=== PATIENT | female | born 1935 | race Caucasian/White ===

== ENCOUNTER 2017-02-22 14:27 | Emergency (ER) | payer MEDICARE, OTHER ==
[2017-02-22 15:06] LABS: BILIRUBIN,URINE NEGATIVE (NEG); GLUCOSE,URINE 500 mg/dL (NEG); NITRITE,URINE NEGATIVE (NEG); PH,URINE 5.5; PROTEIN,URINE 30 mg/dL (NEG-TRACE)
[2017-02-22] MEDS: HYDROcodone/APAP 5/325MG 1 TAB TABLET PO (15:12)
[2017-02-22 15:23] LABS: BACTERIA,URINE MANY /HPF (0-FEW); SQUAMOUS EPITHELIAL CELL,UR MOD /LPF; WBC,URINE 20-40 /HPF (0-4)
[2017-02-22] MEDS: MORPHINE SULFATE 4 MG/ML DISP.SYRIN. IM (17:38)
== END 2017-02-22 18:47 | disposition home or self-care (01) ==
LOC: ER 14:27
DX: S22.060A Wedge compression fracture of T7-T8 vertebra, initial encounter for closed fracture (principal); N39.0 Urinary tract infection, site not specified; E11.9 Type 2 diabetes mellitus without complications; Z95.0 Presence of cardiac pacemaker; Z88.0 Allergy status to penicillin; Z88.6 Allergy status to analgesic agent; W18.39XA Other fall on same level, initial encounter; Y93.89 Activity, other specified; Y92.009 Unspecified place in unspecified non-institutional (private) residence as the place of occurrence of the external cause; Y99.8 Other external cause status
CPT/HCPCS: 51701; 71110; 72128; 81001; 87086; 87186; 96372; 99285-25; J2270

== ENCOUNTER → 2017-09-04 | Day surgery (SDC) | payer MEDICARE, OTHER ==
[~2017-09-04] MED LIST: IV RINGERS,LACTATED 1000ML 1,000 ML IV; LIDOCAINE 1% PF 2 ML VIAL. ID; LIDOCAINE 2% PF Vial for OR 5 ML VIAL.; MIDAZOLAM HCL/PF 2 MG/2 ML VIAL. IV; PROPOFOL 20 ML IV; fentaNYL PF VIAL 100 MCG/2 ML VIAL IV
[2017-09-04] MEDS: SIMETHICONE/SOD BICARB/CITRIC ACID PACKET. PO (15:24)
[2017-09-04] MEDS: BARIUM SULFATE 60% 355 ML SUSP PO (15:24)
[2017-09-04] MEDS: BARIUM SULFATE 340 GM SUSPENSION. PO (15:24)
== END | disposition home or self-care (01) ==
LOC: ENDOS 14:26
DX: K44.9 Diaphragmatic hernia without obstruction or gangrene (principal); K57.30 Diverticulosis of large intestine without perforation or abscess without bleeding; K80.20 Calculus of gallbladder without cholecystitis without obstruction; I25.10 Atherosclerotic heart disease of native coronary artery without angina pectoris; I10 Essential (primary) hypertension; K21.9 Gastro-esophageal reflux disease without esophagitis; E11.9 Type 2 diabetes mellitus without complications; F41.9 Anxiety disorder, unspecified; E44.1 Mild protein-calorie malnutrition; E78.5 Hyperlipidemia, unspecified; Z95.0 Presence of cardiac pacemaker; Z87.891 Personal history of nicotine dependence; Z88.0 Allergy status to penicillin; Z88.8 Allergy status to other drugs, medicaments and biological substances; Z98.890 Other specified postprocedural states; I48.2 Chronic atrial fibrillation; Z82.49 Family history of ischemic heart disease and other diseases of the circulatory system; Z79.01 Long term (current) use of anticoagulants; Z79.4 Long term (current) use of insulin; Z79.899 Other long term (current) drug therapy; H91.93 Unspecified hearing loss, bilateral; Z83.3 Family history of diabetes mellitus
CPT/HCPCS: 74241; J2001; J2704

== ENCOUNTER → 2019-01-18 | Outpatient (CLI) | payer MEDICARE, OTHER ==
[2017-09-03 09:06] VITALS: BP 151/77
[~2019-01-18] MED LIST changes: +ACET1TAB33 PO; +AMIO200T4 PO; +APIX5TAB PO; +ATOR20TA58 PO; +ERGO500027 PO; +HYDR-3164 PO; +INSU100V13 SQ; +INSU8CAR IH; -IV RINGERS,LACTATED 1000ML 1,000 ML IV; -LIDOCAINE 1% PF 2 ML VIAL. ID; -LIDOCAINE 2% PF Vial for OR 5 ML VIAL.; +METF10007 PO; -MIDAZOLAM HCL/PF 2 MG/2 ML VIAL. IV; +NITR100C62 PO; -PROPOFOL 20 ML IV; +SULF1TAB24 PO; +TRAM50TA PO; -fentaNYL PF VIAL 100 MCG/2 ML VIAL IV
--- NOTE | 2019-01-18 17:13 | RAD ---
EXAM: PA and Lateral Views of the Chest DATE: 01/18/2019 12:00 AM INDICATION: Chest wall pain COMPARISON: 09/02/2017 FINDINGS: Stable mild cardiomegaly. Mediastinal and hilar contours are stable. Dense left lung base airspace opacities are seen, likely atelectasis or developing consolidation. Small bilateral pleural effusions, left greater than right. No pneumothorax. Cardiac generator pack obscures a portion of the right chest with leads in stable position. IMPRESSION: Bilateral pleural effusions with left lung base airspace opacities, possibly developing consolidation or atelectasis. Electronically signed by: Derick Allen MD (01/18/2019 5:10 PM) [id number]
== END | disposition home or self-care (01) ==
LOC: RAD 13:25
PROVIDERS: ATTEND Internal Medicine
DX: J90 Pleural effusion, not elsewhere classified (principal); I51.7 Cardiomegaly
CPT/HCPCS: 71046

== ENCOUNTER 2019-02-26 17:40 | Inpatient (IN) | payer MEDICARE, OTHER ==
[~2019-02-26] VITALS: Ht 162.6 cm; Wt 59.9 kg
[~2019-02-26 17:40] MED LIST changes: +ASPI81TA50 PO; +ATOR10TA PO; +DILT180C29 PO; +FLUT9.9S NS; +FURO40TA4 PO; +INSU100V31 SQ; +INSU100V37 SQ; +METO25TA4 PO; +OMEP20TA63 PO; +POTA10TA12 PO; +VENTOLIN HFA18 GM INH
--- NOTE | 2019-02-26 18:08 | PHYS DOC ---
Past Medical History Past Medical History: A-Fib, Arrhythmia, COPD, Diabetes-Type II, Heart Disease Past Surgical History: Pacemaker Alcohol Use: None Drug Use: None Adult General Chief Complaint Chief Complaint: WEAKNESS/GENERALIZED HPI HPI Patient is a 83 year old female who was brought here from home by EMS due to general weakness, trouble breathing. Patient has history of CHF, atrial fibrillation, hypertension. Patient is on Eliquis and diltiazem. Patient was admitted here recently, her EF was 40%, she had bilateral pleural effusion, status post thoracentesis. She would recommend to go to a shelter for rehabilitation however she declined. Patient's son stated that patient had not been eating much, for the last few days she had been in her bed, she was getting weaker, not able to ambulate. No report of fever. Her son said she has been confused, has been hallucinated. All other ROS is negative unless otherwise noted in HPI Review of Systems Review of Systems See above Current Medications Current Medications Current Medications Medications (Trade) Dose Ordered Sig/Dagoberto Start Time Stop Time Status Last Admin Dose Admin Diltiazem HCl (Cardizem Iv Push) 20 mg 1X ONCE 02/26/19 18:15 02/26/19 18:16 DC 02/26/19 18:36 20 MG Diltiazem HCl 125 mg/Sodium Chloride 125 ml @ 5 mls/hr 1X ONCE 02/26/19 20:30 02/27/19 21:29 02/26/19 20:50 5 MLS/HR Ondansetron HCl (Zofran) 4 mg PRN Q8HRS PRN 02/26/19 22:00 02/27/19 21:59 Allergies Allergies Allergies Coded Allergies Type Severity Reaction Last Updated Verified Penicillins Allergy Intermediate SWELLING 09/04/17 Yes ibuprofen Allergy Intermediate "FEELS LIKE I'M DYING" 09/04/17 Yes Physical Exam Physical Exam See above Constitutional: Well developed, well nourished, no acute distress, non-toxic appearance. [] HENT: Normocephalic, atraumatic, bilateral external ears normal, oropharynx moist, no oral exudates, nose normal. [] Eyes: PERRLA, EOMI, conjunctiva normal, no discharge. [] Neck: Normal range of motion, no tenderness, supple, no stridor. [] Cardiovascular: tachycardia, irregular rhythm, no murmur [] Lungs & Thorax: crackles and rales at lung bases, decreased air movement bilaterally. Abdomen: Bowel sounds normal, soft, no tenderness, no masses, no pulsatile masses. [] Skin: Warm, dry, no erythema, no rash. [] Back: No tenderness, no CVA tenderness. [] Extremities: No tenderness, no cyanosis, no clubbing, ROM intact, bilateral leg edema. Neurologic: Alert and oriented only to person, normal motor function, normal sensory function, no focal deficits noted. [] Psychologic: Affect normal, judgement normal, mood normal. [] Current Patient Data Vital Signs Vital Signs Date Time Temp Pulse Resp B/P (MAP) Pulse Ox O2 Delivery O2 Flow Rate FiO2 02/26/19 21:59 123 21 104/57 (73) 94 02/26/19 21:06 Nasal Cannula 2.0 02/26/19 17:40 98.3 98.3 Lab Values Laboratory Tests Test 02/26/19 20:05 02/26/19 21:15 White Blood Count 12.7 x10^3/uL (4.0-11.0) H Red Blood Count 5.04 x10^6/uL (3.50-5.40) Hemoglobin 13.1 g/dL (12.0-15.5) Hematocrit 42.3 % (36.0-47.0) Mean Corpuscular Volume 84 fL (79-100) Mean Corpuscular Hemoglobin 26 pg (25-35) Mean Corpuscular Hemoglobin Concent 31 g/dL (31-37) Red Cell Distribution Width 16.9 % (11.5-14.5) H Platelet Count 516 x10^3/uL (140-400) H Neutrophils (%) (Auto) 77 % (31-73) H Lymphocytes (%) (Auto) 8 % (24-48) L Monocytes (%) (Auto) 14 % (0-9) H Eosinophils (%) (Auto) 0 % (0-3) Basophils (%) (Auto) 1 % (0-3) Neutrophils # (Auto) 9.8 x10^3/uL (1.8-7.7) H Lymphocytes # (Auto) 1.0 x10^3/uL (1.0-4.8) Monocytes # (Auto) 1.8 x10^3/uL (0.0-1.1) H Eosinophils # (Auto) 0.0 x10^3/uL (0.0-0.7) Basophils # (Auto) 0.1 x10^3/uL (0.0-0.2) Prothrombin Time 18.0 SEC (11.7-14.0) H Prothrombin Time INR 1.5 (0.8-1.1) H Activated Partial Thromboplast Time 40 SEC (24-38) H Sodium Level 135 mmol/L (136-145) L Potassium Level 3.6 mmol/L (3.5-5.1) Chloride Level 96 mmol/L (98-107) L Carbon Dioxide Level 23 mmol/L (21-32) Anion Gap 16 (6-14) H Blood Urea Nitrogen 31 mg/dL (7-20) H Creatinine 1.0 mg/dL (0.6-1.0) Estimated GFR (Cockcroft-Gault) 53.2 BUN/Creatinine Ratio 31 (6-20) H Glucose Level 197 mg/dL (70-99) H Lactic Acid Level 1.7 mmol/L (0.4-2.0) Calcium Level 8.4 mg/dL (8.5-10.1) L Magnesium Level 1.9 mg/dL (1.8-2.4) Total Bilirubin 0.8 mg/dL (0.2-1.0) Aspartate Amino Transferase (AST) 13 U/L (15-37) L Alanine Aminotransferase (ALT) 6 U/L (14-59) L Alkaline Phosphatase 148 U/L (46-116) H Troponin I Quantitative < 0.017 ng/mL (0.000-0.055) Total Protein 6.6 g/dL (6.4-8.2) Albumin 2.7 g/dL (3.4-5.0) L Albumin/Globulin Ratio 0.7 (1.0-1.7) L Urine Collection Type U cath Urine Color Vee Urine Clarity Turbid Urine pH 5.5 Urine Specific [place] 1.015 Urine Protein Negative mg/dL (NEG-TRACE) Urine Glucose (UA) Negative mg/dL (NEG) Urine Ketones (Stick) Trace mg/dL (NEG) Urine Blood Large (NEG) Urine Nitrite Negative (NEG) Urine Bilirubin Moderate (NEG) Urine Urobilinogen Dipstick 1.0 mg/dL (0.2 mg/dL) Urine Leukocyte Esterase Large (NEG) Urine RBC 20-40 /HPF (0-2) Urine WBC Tntc /HPF (0-4) Urine Squamous Epithelial Cells None /LPF Urine Bacteria Few /HPF (0-FEW) Urine Hyaline Casts Many /HPF Urine Mucus Marked /LPF Urine Yeast Present /HPF Laboratory Tests 02/26/19 20:05 Laboratory Tests 02/26/19 20:05 EKG EKG EKG WAS READ BY THIS PHYSICIAN AT 1748, RATE OF 144, AFIB WITH RVR. Radiology/Procedures Radiology/Procedures [][facility] [address] [place], [place] [id number] IMAGING REPORT Signed PATIENT: SONIA CASTELLANOOUNT: [id number] : 1935 LOCATION: ER AGE: 83 SEX: F EXAM STATUS: PRE ER ORD. PHYSICIAN: HUNTER CUI DO REASON: soa PROCEDURE: PORTABLE CHEST 1V Chest AP portable at 1815: Reason for examination: Short of breath. Comparison is made to previous study dated 02/12/2019. Pacemaker remains present over the right hemithorax with leads to the right atrium and right ventricle. Heart and mediastinum are unchanged. Lung kapoor show continued presence of infiltrates and pleural fluid at the left lung base but this shows some interval improvement. There appears to be increasing hazy infiltrates in the small pleural effusion at the right lung base. There also appears to be probable interstitial present bilaterally. These findings may be due to congestive heart failure with pulmonary edema and pleural effusions. No acute bony abnormalities are seen. IMPRESSION: Cardiomegaly with bibasal infiltrates and pleural effusions as well as increased interstitial markings. Findings would be consistent with congestive heart failure with some pulmonary edema. Electronically signed by: Teresita Terry MD (02/26/2019 6:37 PM) [facility] DICTATED and SIGNED BY: TERESITA TERRY MD DATE: 02/26/19 2069 Course & Med Decision Making Course & Med Decision Making Pertinent Labs and Imaging studies reviewed. (See chart for details) [] Dragon Disclaimer Dragon Disclaimer This electronic medical record was generated, in whole or in part, using a voice recognition dictation system. Departure Departure Impression: Primary Impression: Afib Additional Impression: UTI (urinary tract infection) Disposition: ADMITTED INPATIENT Admitting Physician: Madi. Kirkland Condition: STABLE Referrals: MEG PALOMO MD (PCP) Problem Qualifiers HUNTER CUI DO Feb 26, 2019 18:08
[2019-02-26] MEDS ORDERED: dilTIAZem IV PUSH 25 MG/5 ML VIAL IVP ONE (18:15)
--- NOTE | 2019-02-26 18:40 | RAD ---
Chest AP portable at 1815: Reason for examination: Short of breath. Comparison is made to previous study dated 02/12/2019. Pacemaker remains present over the right hemithorax with leads to the right atrium and right ventricle. Heart and mediastinum are unchanged. Lung kapoor show continued presence of infiltrates and pleural fluid at the left lung base but this shows some interval improvement. There appears to be increasing hazy infiltrates in the small pleural effusion at the right lung base. There also appears to be probable interstitial present bilaterally. These findings may be due to congestive heart failure with pulmonary edema and pleural effusions. No acute bony abnormalities are seen. IMPRESSION: Cardiomegaly with bibasal infiltrates and pleural effusions as well as increased interstitial markings. Findings would be consistent with congestive heart failure with some pulmonary edema. Electronically signed by: Annetta Guillen MD (02/26/2019 6:37 PM) [facility]
[2019-02-26] MEDS ORDERED: dilTIAZem INJ 125 MG in IV NORMAL SALINE 100ML 100 ML IV ONE (20:30)
[2019-02-26 20:34] LABS: BASO # 0.1 x10^3/uL (0.0-0.2); BASO % 1 % (0-3); EOS % 0 % (0-3); HEMATOCRIT 42.3 % (36.0-47.0); HEMOGLOBIN 13.1 g/dL (12.0-15.5); LYMPH % 8 % (24-48); MEAN CORPUSCULAR HEMOGLOBIN 26 pg (25-35); MEAN CORPUSCULAR HGB CONC 31 g/dL (31-37); MEAN CORPUSCULAR VOLUME 84 fL (79-100); MONO # 1.8 x10^3/uL (0.0-1.1); MONO % 14 % (0-9); NEUT # 9.8 x10^3/uL (1.8-7.7); NEUT % 77 % (31-73); PLATELET COUNT 516 x10^3/uL (140-400); RED BLOOD COUNT 5.04 x10^6/uL (3.50-5.40); RED CELL DISTRIBUTION WIDTH 16.9 % (11.5-14.5); WHITE BLOOD COUNT 12.7 x10^3/uL (4.0-11.0)
[2019-02-26 20:38] LABS: CALCIUM 8.4 mg/dL (8.5-10.1); GFR 53.2; POTASSIUM 3.6 mmol/L (3.5-5.1)
[2019-02-26 20:45] LABS: ALBUMIN 2.7 g/dL (3.4-5.0); ALBUMIN/GLOBULIN RATIO 0.7 (1.0-1.7); MAGNESIUM 1.9 mg/dL (1.8-2.4); TOTAL BILIRUBIN 0.8 mg/dL (0.2-1.0); TOTAL PROTEIN 6.6 g/dL (6.4-8.2)
[2019-02-26 21:26] LABS: BILIRUBIN,URINE MODERATE (NEG); CLARITY,URINE TURBID; COLOR,URINE AMBER; NITRITE,URINE NEGATIVE (NEG); PH,URINE 5.5; PROTEIN,URINE NEGATIVE (NEG-TRACE)
[2019-02-26 21:35] LABS: BACTERIA,URINE FEW /HPF (0-FEW); HYALINE CASTS, URINE MANY /HPF; RBC,URINE 20-40 /HPF (0-2); WBC,URINE TNTC /HPF (0-4); YEAST,URINE PRESENT /HPF
[2019-02-26] MEDS ORDERED: ONDANSETRON PF 4 MG/2 ML VIAL. IV PRN (22:00)
[2019-02-26] MEDS ORDERED: HYDROcodone/APAP 5/325MG 1 TAB TABLET PO ONE (22:30)
[2019-02-27] VITALS (9 sets, daily range): BP systolic 94–138; BP diastolic 55–99
[2019-02-27] MEDS ORDERED: IPRATRPIUM/ALBUTEROL 0.5/2.5MG 3 ML NEBU. ONE (05:55)
[2019-02-27] MEDS: IPRATRPIUM/ALBUTEROL 0.5/2.5MG 3 ML NEBU. NEB SCH ×4 (06:24→20:15)
--- NOTE | 2019-02-27 07:53 | HP ---
ADMIT DATE: HISTORY OF PRESENT ILLNESS: The patient is an 83-year-old female patient, who was brought to the Emergency Room by EMS due to generalized weakness, shortness of breath. She apparently is known to have congestive heart failure, atrial fibrillation and hypertension and currently on Eliquis and diltiazem. She was discharged recently from this hospital. She has had bilateral pleural effusion for which she underwent thoracentesis. It was recommended for her to go to a halfway for rehabilitation; however, she declined. Her son stated that the patient has been eating much for the last few days, has had pain in her bed. She was getting weaker, not able to ambulate. No reports of fever; however, his son said that she has been more confused and hallucinating. She was evaluated in the Emergency Room and her lab work shows mild leukocytosis. Her chemistry showed that she is dehydrated and her urinalysis showed she has too numerous to count wbc's and large amount of leukocyte esterase and few bacteria. Her chest x-ray showed that there is cardiomegaly with bilateral infiltrate and pleural effusion as well as increased interstitial marking, finding would be consistent with congestive heart failure with some pulmonary edema. The patient was started on IV levofloxacin as she is ALLERGIC TO PENICILLIN and was admitted for further evaluation and treatment. She was found to be in atrial fibrillation with rapid ventricular response for which she was started on Cardizem drip and was admitted with atrial fibrillation with rapid ventricular response, urinary tract infection and acute on chronic systolic congestive heart failure. When I questioned her, she did complain of pain in her feet. PAST MEDICAL HISTORY: Significant for chronic atrial fibrillation, bilateral sensorineural deafness, chronic obstructive pulmonary disease, type 2 diabetes, hypertension, insulin requiring, paroxysmal ventricular tachycardia, UTIs in the past as well as anxiety. PAST SURGICAL HISTORY: Significant for permanent pacemaker placement. ALLERGIES: SHE IS ALLERGIC TO PENICILLIN, IBUPROFEN AND TYLENOL. FAMILY HISTORY: Positive for diabetes, history of alcoholism in the past. SOCIAL HISTORY: She is a former smoker, at least 1 pack for 40 years, cut down and stopped recently. She apparently lives with her son. REVIEW OF SYSTEMS: The patient denied any blurring of vision, cataract, glaucoma or macular degeneration. Denied any earache, tinnitus. She does have sensorineural deafness. Denied any nosebleeds, stuffy nose or postnasal drip. Denied any sore throat, sore tongue, toothache, hoarseness of voice or difficulty swallowing. Denied any nausea, vomiting, diarrhea or constipation. Denied any hematemesis, melena or hematochezia. Denied any dysuria, frequency or hematuria. Her complaint is mostly pain in her feet. PHYSICAL EXAMINATION: GENERAL: On arrival to the Emergency Room, her heart rate was up to 148 on arrival, blood pressure was 122/78, temperature 98.3, respiratory rate was 24, and oxygen saturation was 94% on 3 liters of oxygen by nasal cannula. HEAD, EYES, EARS, NOSE AND THROAT: Showed normocephalic, atraumatic. NECK: Supple. HEART: Showed normal first and second heart sounds. No gallop or murmur. CHEST: Shows central trachea, equally reduced expansion, reduced air entry, vesicular sounds with crepitation both sides posteriorly. I could not really appreciate any rhonchi. ABDOMEN: Slightly distended, soft, nontender. NEUROLOGIC: She is very hard of hearing, but otherwise all cranial nerves intact. EXTREMITIES: She moves extremities without difficulty. LABORATORY DATA: On arrival showed a white cell count of 12,700, hemoglobin 13, hematocrit 42, MCV 84 and platelet count of 516,000. Her chemistry showed a serum sodium 135, potassium 3.6, chloride 96, bicarbonate 23, anion gap of 16, BUN 31, creatinine 1, estimated GFR was 53 mL per minute. Her glucose was 197. Lactic acid was 1.7, calcium was 8.4, magnesium was 1.9. Total bilirubin, AST, ALT were normal. Alkaline phosphatase was slightly elevated. Total protein 6.6, albumin 2.7. Her prothrombin time was 18, INR 1.5, aPTT was 40. Urinalysis showed the urine was lizandro, turbid with a pH of 5.5, specific gravity of 1.015. The urine was negative for protein, glucose, trace of ketones, large amount of blood, negative for nitrite, moderate amount of bilirubin with large amount of leukocyte esterase, 20-40 rbc's, too numerous to count wbc's, very few bacteria. ASSESSMENT AND PLAN: The patient was admitted with atrial fibrillation with rapid ventricular response, started on Cardizem drip. She was also started on IV Levaquin for her presumed UTI. I will resume all her medication for now and we will consult the knitter operator to assist with her management. RISHABH MODI MD DR: JB/kallie JOB#: [id number] / [id number]
[2019-02-27] MEDS: ALBUTEROL SULFATE 2.5 MG/3 ML NEBU. NEB SCH ×3 (08:00→23:50)
[2019-02-27] MEDS: FLUTICASONE 50MCG/NASAL SPRAY 16GM BOTTLE. NS SCH (09:13)
[2019-02-27] MEDS: FUROSEMIDE 40 MG TABLET. PO SCH (09:14)
[2019-02-27] MEDS: APIXABAN 5 MG TABLET. PO SCH ×2 (09:14→20:47)
[2019-02-27] MEDS: POTASSIUM CHLORIDE 20 MEQ TABLET.ER. PO SCH (09:14)
[2019-02-27] MEDS: ASPIRIN ENTERIC COATED 81 MG TABLET.DR. PO SCH (09:14)
[2019-02-27] MEDS: PANTOPRAZOLE 40 MG TABLET.DR. PO SCH (09:15)
[2019-02-27] MEDS: traMADol 50 MG TABLET PO PRN ×2 (09:16→20:44)
[2019-02-27] MEDS: METOPROLOL TART IMMED RELEASE 25 MG TABLET. PO SCH ×2 (09:16→20:48)
[2019-02-27] MEDS: INSULIN LISPRO 300 UNITS/3 ML VIAL. SQ SCH ×3 (09:21→16:30)
--- NOTE | 2019-02-27 12:14 | PN ---
DATE: 02/27/2019 SUBJECTIVE: The patient is resting slightly propped up in bed, no apparent distress. She is awake, alert, very hard of hearing. Her main complaint is pain in her legs. Denied any chest pain or shortness of breath. She was admitted with generalized weakness, atrial fibrillation, rapid ventricular response, and urinary tract infection. She was started on a Cardizem drip. PHYSICAL EXAMINATION: GENERAL: When I saw her today, she was resting slightly propped up in bed, in no apparent distress, pale. No jaundice, cyanosis, or thyromegaly. No jugular venous distention. No limb edema. VITAL SIGNS: Her heart rate was 97, blood pressure was 115/66, temperature 97.3, respiratory rate was 24, and oxygen saturation was 94% on 2 liters of oxygen. HEAD, EYES, EARS, NOSE, AND THROAT: Normocephalic, atraumatic. NECK: Supple. HEART: Showed normal first and second sounds. No gallop or murmur. CHEST: Shows central trachea, equal bilateral expansion, air entry ____ crepitation both sides posteriorly. I could not appreciate any rhonchi. ABDOMEN: Distended, soft, nontender. NEUROLOGIC: She is very hard of hearing. Otherwise all cranial nerves are intact. She moves extremities without difficulty. Her intake and output are incompletely recorded. LABORATORY DATA: Her lab work this morning is still pending. PLAN: My plan is to continue with IV Levaquin. Continue with the Cardizem drip. I reconciled all her medication. We will probably change her Lasix to be given IV, and I have consulted the cardiology team to assist with her management. RISHABH MODI MD DR: JB/kallie JOB#: [id number] / [id number]
--- NOTE | 2019-02-27 12:22 | PDOC2 ---
CONSULT Date of Consult Date of Consult DATE: 02/27/19 TIME: 12:22 Reason for Consult Reason for Consult: Atrial fibrillation Referring Physician Referring Physician: Dr. Del Rio Identification/Chief Complaint Chief Complaint Generalized weakness Source Source: Chart review, Patient History of Present Illness Reason for Visit: 83-year-old female with history of permanent atrial fibrillation, sick sinus syndrome s/p permanent pacemaker implantation and COPD was brought by EMS for generalized weakness and shortness of breath. She was diagnosed with UTI, atrial fibrillation with RVR and congestive heart failure and admitted for further management. She was initially started on Cardizem drip that was discontinued after her heart rate was very well controlled. She complained of pain in both lower extremities and 'rib pain' but denied any orthopnea/PND or syncope. Past Medical History Cardiovascular: AFIB, HTN, Hyperlipidemia, Pulmonary hypertension, Other Pulmonary: COPD CENTRAL NERVOUS SYSTEM: Seizure, Other GI: Diverticulosis, GERD, GI bleed, Other Hepatobiliary: Cholelithiasis Psych: Anxiety Musculoskeletal: Osteoarthritis, Other Infectious disease: Other Renal/: UTI, Other Endocrine: Diabetes, Osteoporosis Past Surgical History Past Surgical History: Pacemaker Family History Family History: Family History Unknown Social History ALCOHOL: none Drugs: None Lives: with Family Current Problem List Problem List Problems Medical Problems: (1) Afib Status: Acute (2) UTI (urinary tract infection) Status: Acute Current Medications Current Medications Current Medications Diltiazem HCl (Cardizem Iv Push) 20 mg 1X ONCE IVP Last administered on 02/26/19at 18:36; Start 02/26/19 at 18:15; Stop 02/26/19 at 18:16; Status DC Diltiazem HCl 125 mg/Sodium Chloride 125 ml @ 5 mls/hr 1X ONCE IV Last administered on 02/26/19at 20:50; Start 02/26/19 at 20:30; Stop 02/27/19 at 21:29 Levofloxacin/ Dextrose 150 ml @ 100 mls/hr 1X ONCE IV Last administered on 02/26/19at 23:11; Start 02/26/19 at 22:30; Stop 02/26/19 at 23:59; Status DC Ondansetron HCl (Zofran) 4 mg PRN Q8HRS PRN IV NAUSEA/VOMITING 1ST CHOICE; Start 02/26/19 at 22:00; Stop 02/27/19 at 21:59 Albuterol/ Ipratropium (Duoneb) 3 ml RTQID NEB Last administered on 02/27/19at 06:24; Start 02/27/19 at 08:00; Stop 02/28/19 at 07:59 Acetaminophen/ Hydrocodone Bitart (Lortab 5/325) 1 tab 1X ONCE PO Last administered on 02/26/19at 23:10; Start 02/26/19 at 22:30; Stop 02/26/19 at 22:31; Status DC Albuterol/ Ipratropium (Duoneb) 3 ml STK-MED ONCE .ROUTE ; Start 02/27/19 at 05:55; Stop 02/27/19 at 05:55; Status DC Apixaban (Eliquis) 5 mg BID PO Last administered on 02/27/19at 09:14; Start 02/27/19 at 09:00 Aspirin (Ecotrin) 81 mg DAILY PO Last administered on 02/27/19at 09:14; Start 02/27/19 at 09:00 Atorvastatin Calcium (Lipitor) 10 mg HS PO ; Start 02/27/19 at 21:00 Diltiazem HCl (Cardizem 24hr Cd) 180 mg DAILY PO Last administered on 02/27/19at 09:14; Start 02/27/19 at 09:00 Ergocalciferol (Vitamin D2) 50,000 unit WEEKLY PO ; Start 03/02/19 at 09:00 Furosemide (Lasix) 40 mg DAILY PO Last administered on 02/27/19at 09:14; Start 02/27/19 at 09:00 Metoprolol Tartrate (Lopressor) 25 mg BID PO Last administered on 02/27/19at 09:16; Start 02/27/19 at 09:00 Potassium Chloride (Klor-Con) 20 meq DAILY PO Last administered on 02/27/19at 09:14; Start 02/27/19 at 09:00 Tramadol HCl (Ultram) 50 mg PRN Q6HRS PRN PO PAIN Last administered on 02/27/19at 09:16; Start 02/27/19 at 07:30 Albuterol Sulfate (Ventolin Neb Soln) 2.5 mg Q4HRS NEB ; Start 02/27/19 at 08:00 Fluticasone Propionate (Flonase) 2 spray DAILY NS Last administered on 02/27/19at 09:13; Start 02/27/19 at 09:00 Insulin Human Lispro (HumaLOG) 10 units TIDAC SQ Last administered on 02/27/19at 09:21; Start 02/27/19 at 07:30 Insulin Glargine (Lantus Syringe) 10 unit QHS SQ ; Start 02/27/19 at 21:00 Pantoprazole Sodium (Protonix) 40 mg DAILYAC PO Last administered on 02/27/19at 09:15; Start 02/27/19 at 07:30 Active Scripts Active Klor-Con 10 (Potassium Chloride) 10 Meq Tablet.er 2 Tab PO DAILY 30 Days Furosemide 40 Mg Tablet 40 Mg PO DAILY 30 Days Metoprolol Tartrate 25 Mg Tablet 25 Mg PO BID 30 Days Diltiazem 24HR Cd (Diltiazem Hcl) 180 Mg Cap.er.24h 180 Mg PO DAILY 30 Days Reported Prilosec Otc (Omeprazole Magnesium) 20 Mg Tablet.dr 20 Mg PO DAILY Ventolin Hfa Inhaler (Albuterol Sulfate) 18 Gm Hfa.aer.ad 2 Puff INH Q4HRS Flonase Allergy Relief (Fluticasone Propionate) 9.9 Ml Orange.susp 2 Sprays NS DAILY Aspir-Low (Aspirin) 81 Mg Tablet.dr 1 Tab PO DAILY Tramadol Hcl 50 Mg Tablet 50 Mg PO Q6HRS PRN Novolog (Insulin Aspart) 100 Unit/1 Ml Vial 10 Unit SQ TIDAC Tresiba (Insulin Degludec) 100 Unit/1 Ml Vial 10 Unit SQ HS Lipitor (Atorvastatin Calcium) 10 Mg Tablet 10 Mg PO HS Vitamin D2 (Ergocalciferol (Vitamin D2)) 50,000 Unit Capsule 50,000 Unit PO WEEKLY Eliquis (Apixaban) 5 Mg Tablet 5 Mg PO BID Allergies Allergies: Coded Allergies: Penicillins (Verified Allergy, Intermediate, SWELLING, 09/04/17) ibuprofen (Verified Allergy, Intermediate, "FEELS LIKE I'M DYING", 09/04/17 ) ROS General: YES: Fatigue, Malaise PSYCHOLOGICAL ROS: No: Hallucinations Eyes: No Loss of vision HEENT: No: Epistaxis Respiratory: YES: Shortness of breath; No: Hemoptysis Cardiovascular: yes Chest Pain Gastrointestinal: No Vomiting Genitourinary: No Hematuria Neurological: No Seizures Skin: No Rash Physical Exam General: Alert HEENT: Atraumatic Lungs: Other (bilateral scattered crepitations) Heart: Other (heart rate irregular) Abdomen: Soft Extremities: No edema Psych/Mental Status: Mood NL Vitals VITALS Vital Signs Date Time Temp Pulse Resp B/P (MAP) Pulse Ox O2 Delivery O2 Flow Rate FiO2 02/27/19 10:31 98.0 104 24 108/55 (72) 96 Nasal Cannula 2.0 98.0 Labs Labs Laboratory Tests Test 02/26/19 20:05 02/26/19 21:15 02/27/19 07:26 02/27/19 11:39 White Blood Count 12.7 x10^3/uL (4.0-11.0) Red Blood Count 5.04 x10^6/uL (3.50-5.40) Hemoglobin 13.1 g/dL (12.0-15.5) Hematocrit 42.3 % (36.0-47.0) Mean Corpuscular Volume 84 fL (79-100) Mean Corpuscular Hemoglobin 26 pg (25-35) Mean Corpuscular Hemoglobin Concent 31 g/dL (31-37) Red Cell Distribution Width 16.9 % (11.5-14.5) Platelet Count 516 x10^3/uL (140-400) Neutrophils (%) (Auto) 77 % (31-73) Lymphocytes (%) (Auto) 8 % (24-48) Monocytes (%) (Auto) 14 % (0-9) Eosinophils (%) (Auto) 0 % (0-3) Basophils (%) (Auto) 1 % (0-3) Neutrophils # (Auto) 9.8 x10^3/uL (1.8-7.7) Lymphocytes # (Auto) 1.0 x10^3/uL (1.0-4.8) Monocytes # (Auto) 1.8 x10^3/uL (0.0-1.1) Eosinophils # (Auto) 0.0 x10^3/uL (0.0-0.7) Basophils # (Auto) 0.1 x10^3/uL (0.0-0.2) Prothrombin Time 18.0 SEC (11.7-14.0) Prothromb Time International Ratio 1.5 (0.8-1.1) Activated Partial Thromboplast Time 40 SEC (24-38) Sodium Level 135 mmol/L (136-145) Potassium Level 3.6 mmol/L (3.5-5.1) Chloride Level 96 mmol/L (98-107) Carbon Dioxide Level 23 mmol/L (21-32) Anion Gap 16 (6-14) Blood Urea Nitrogen 31 mg/dL (7-20) Creatinine 1.0 mg/dL (0.6-1.0) Estimated GFR (Cockcroft-Gault) 53.2 BUN/Creatinine Ratio 31 (6-20) Glucose Level 197 mg/dL (70-99) Lactic Acid Level 1.7 mmol/L (0.4-2.0) Calcium Level 8.4 mg/dL (8.5-10.1) Magnesium Level 1.9 mg/dL (1.8-2.4) Total Bilirubin 0.8 mg/dL (0.2-1.0) Aspartate Amino Transf (AST/SGOT) 13 U/L (15-37) Alanine Aminotransferase (ALT/SGPT) 6 U/L (14-59) Alkaline Phosphatase 148 U/L (46-116) Troponin I Quantitative < 0.017 ng/mL (0.000-0.055) Total Protein 6.6 g/dL (6.4-8.2) Albumin 2.7 g/dL (3.4-5.0) Albumin/Globulin Ratio 0.7 (1.0-1.7) Urine Collection Type U cath Urine Color Vee Urine Clarity Turbid Urine pH 5.5 Urine Specific [place] 1.015 Urine Protein Negative mg/dL (NEG-TRACE) Urine Glucose (UA) Negative mg/dL (NEG) Urine Ketones (Stick) Trace mg/dL (NEG) Urine Blood Large (NEG) Urine Nitrite Negative (NEG) Urine Bilirubin Moderate (NEG) Urine Urobilinogen Dipstick 1.0 mg/dL (0.2 mg/dL) Urine Leukocyte Esterase Large (NEG) Urine RBC 20-40 /HPF (0-2) Urine WBC Tntc /HPF (0-4) Urine Squamous Epithelial Cells None /LPF Urine Bacteria Few /HPF (0-FEW) Urine Hyaline Casts Many /HPF Urine Mucus Marked /LPF Urine Yeast Present /HPF Glucose (Fingerstick) 202 mg/dL (70-99) 162 mg/dL (70-99) Laboratory Tests Test 02/26/19 20:05 02/26/19 21:15 02/27/19 07:26 02/27/19 11:39 White Blood Count 12.7 x10^3/uL (4.0-11.0) Red Blood Count 5.04 x10^6/uL (3.50-5.40) Hemoglobin 13.1 g/dL (12.0-15.5) Hematocrit 42.3 % (36.0-47.0) Mean Corpuscular Volume 84 fL (79-100) Mean Corpuscular Hemoglobin 26 pg (25-35) Mean Corpuscular Hemoglobin Concent 31 g/dL (31-37) Red Cell Distribution Width 16.9 % (11.5-14.5) Platelet Count 516 x10^3/uL (140-400) Neutrophils (%) (Auto) 77 % (31-73) Lymphocytes (%) (Auto) 8 % (24-48) Monocytes (%) (Auto) 14 % (0-9) Eosinophils (%) (Auto) 0 % (0-3) Basophils (%) (Auto) 1 % (0-3) Neutrophils # (Auto) 9.8 x10^3/uL (1.8-7.7) Lymphocytes # (Auto) 1.0 x10^3/uL (1.0-4.8) Monocytes # (Auto) 1.8 x10^3/uL (0.0-1.1) Eosinophils # (Auto) 0.0 x10^3/uL (0.0-0.7) Basophils # (Auto) 0.1 x10^3/uL (0.0-0.2) Prothrombin Time 18.0 SEC (11.7-14.0) Prothromb Time International Ratio 1.5 (0.8-1.1) Activated Partial Thromboplast Time 40 SEC (24-38) Sodium Level 135 mmol/L (136-145) Potassium Level 3.6 mmol/L (3.5-5.1) Chloride Level 96 mmol/L (98-107) Carbon Dioxide Level 23 mmol/L (21-32) Anion Gap 16 (6-14) Blood Urea Nitrogen 31 mg/dL (7-20) Creatinine 1.0 mg/dL (0.6-1.0) Estimated GFR (Cockcroft-Gault) 53.2 BUN/Creatinine Ratio 31 (6-20) Glucose Level 197 mg/dL (70-99) Lactic Acid Level 1.7 mmol/L (0.4-2.0) Calcium Level 8.4 mg/dL (8.5-10.1) Magnesium Level 1.9 mg/dL (1.8-2.4) Total Bilirubin 0.8 mg/dL (0.2-1.0) Aspartate Amino Transf (AST/SGOT) 13 U/L (15-37) Alanine Aminotransferase (ALT/SGPT) 6 U/L (14-59) Alkaline Phosphatase 148 U/L (46-116) Troponin I Quantitative < 0.017 ng/mL (0.000-0.055) Total Protein 6.6 g/dL (6.4-8.2) Albumin 2.7 g/dL (3.4-5.0) Albumin/Globulin Ratio 0.7 (1.0-1.7) Urine Collection Type U cath Urine Color Vee Urine Clarity Turbid Urine pH 5.5 Urine Specific [place] 1.015 Urine Protein Negative mg/dL (NEG-TRACE) Urine Glucose (UA) Negative mg/dL (NEG) Urine Ketones (Stick) Trace mg/dL (NEG) Urine Blood Large (NEG) Urine Nitrite Negative (NEG) Urine Bilirubin Moderate (NEG) Urine Urobilinogen Dipstick 1.0 mg/dL (0.2 mg/dL) Urine Leukocyte Esterase Large (NEG) Urine RBC 20-40 /HPF (0-2) Urine WBC Tntc /HPF (0-4) Urine Squamous Epithelial Cells None /LPF Urine Bacteria Few /HPF (0-FEW) Urine Hyaline Casts Many /HPF Urine Mucus Marked /LPF Urine Yeast Present /HPF Glucose (Fingerstick) 202 mg/dL (70-99) 162 mg/dL (70-99) Assessment/Plan Assessment/Plan 1. Atrial fibrillation with rapid ventricular response, probably precipitated by UTI. Heart rate much better controlled since admission. Continue oral Cardizem. If heart rate increases, we will consider digoxin. Continue eliqui for stroke prophylaxis. 2. Mild acute on chronic systolic heart failure. Probably precipitated by RVR. Continue diuretics. Recent 2-D echo showed EF 40-45% with [id number] pericardial effusion (12/19). 3. UTI: Continue antibiotics per IM 4. SSS s/p PPM clinically stable 5. Diabetes mellitus type 2: Treat per IM 6. COPD: Continue current medical regimen Thank you for your consultation PREM OSBORNE MD Feb 27, 2019 12:22
[2019-02-27] MEDS: ATORVASTATIN CALCIUM 10 MG TABLET. PO SCH (20:47)
[2019-02-27] MEDS: INSULIN GLARGINE SYRINGE. SQ SCH (20:48)
[2019-02-28 03:12] VITALS: BP 97/63
[2019-02-28] MEDS: ALBUTEROL SULFATE 2.5 MG/3 ML NEBU. NEB SCH ×4 (04:45→19:58)
[2019-02-28 06:34] VITALS: BP 112/64
[2019-02-28] MEDS: IPRATRPIUM/ALBUTEROL 0.5/2.5MG 3 ML NEBU. NEB SCH (07:41)
[2019-02-28 08:58] LABS: CALCIUM 8.2 mg/dL (8.5-10.1); GFR 53.2; POTASSIUM 3.6 mmol/L (3.5-5.1)
[2019-02-28] MEDS: FLUTICASONE 50MCG/NASAL SPRAY 16GM BOTTLE. NS SCH (09:41)
[2019-02-28] MEDS: ASPIRIN ENTERIC COATED 81 MG TABLET.DR. PO SCH (09:42)
[2019-02-28] MEDS: PANTOPRAZOLE 40 MG TABLET.DR. PO SCH (09:42)
[2019-02-28] MEDS: APIXABAN 5 MG TABLET. PO SCH ×2 (09:43→21:09)
[2019-02-28] MEDS: METOPROLOL TART IMMED RELEASE 25 MG TABLET. PO SCH ×2 (09:43→21:09)
[2019-02-28] MEDS: FUROSEMIDE 40 MG TABLET. PO SCH (09:43)
[2019-02-28] MEDS: POTASSIUM CHLORIDE 20 MEQ TABLET.ER. PO SCH (09:52)
[2019-02-28] MEDS: INSULIN LISPRO 300 UNITS/3 ML VIAL. SQ SCH ×3 (09:56→16:30)
[2019-02-28 10:02] VITALS: BP 107/59
--- NOTE | 2019-02-28 11:06 | PN ---
DATE: SUBJECTIVE: The patient is resting, slightly propped up in bed, clearly in no apparent respiratory distress, awake, alert, but very hard of hearing. Denied any chest pain or shortness of breath, has had no more pain in her legs. Her heart rate seems to be somewhat better controlled on oral Cardizem. PHYSICAL EXAMINATION: GENERAL: When I examined her, she looked pale, but no jaundice, cyanosis or thyromegaly. No jugular venous distention. No lower limb edema. VITAL SIGNS: Her heart rate was 95, blood pressure was 112/64, temperature 97.5, respiratory rate was 12 and oxygen saturation was 97% on 2 liters of oxygen. HEAD, EYES, EARS, NOSE AND THROAT: Showed normocephalic, atraumatic. NECK: Supple. HEART: Normal first and second sounds. No gallop or murmur. CHEST: Clear to auscultation. No crepitation or rhonchi. ABDOMEN: Slightly distended, soft, nontender. NEUROLOGIC: She is very hard of hearing. Otherwise all other cranial nerves are intact. She moves her extremities without difficulty, although apparently has been very weak and hesitant to move according to nursing staff. Her intake over the last 24 hours was incompletely recorded. LABORATORY DATA: Her lab works today is still pending at the time of this dictation. As of yesterday, her white cell count was 12,700, hemoglobin 13, hematocrit 42, MCV 84, platelet count 516,000. Her chemistry showed that her serum sodium 135, potassium 3.6, chloride 96, bicarbonate 23, anion gap of 16, BUN 31, creatinine 1, estimated GFR was 53 mL per minute. Her glucose was 97. Lactic acid is only 1.7. Her blood cultures are so far negative and urine cultures are still pending at the time of this dictation. ASSESSMENT: 1. Atrial fibrillation with rapid ventricular response, better controlled today on oral Cardizem. 2. Acute on chronic diastolic congestive heart failure. The patient seems to be less short of breath today. 3. Sick sinus syndrome, status post permanent pacemaker. 4. Type 2 diabetes mellitus seems to be reasonably controlled. 5. Chronic obstructive pulmonary disease. 6. Urinary tract infection. PLAN: Plan is to continue with all her medication. I would continue with Levaquin 500 mg once a day. Continue with physical and occupational therapy. Await the result of the urine culture and sensitivity. RISHABH MODI MD DR: JB/kallie JOB#: [id number] / [id number]
--- NOTE | 2019-02-28 11:56 | PDOC ---
PROGRESS NOTES Subjective Subjective Feeling better with improvement in dyspnea Objective Objective Vital Signs Date Time Temp Pulse Resp B/P (MAP) Pulse Ox O2 Delivery O2 Flow Rate FiO2 02/28/19 10:02 97.5 100 12 107/59 (75) 96 Nasal Cannula 2.0 97.5 Intake and Output 02/28/19 06:59 Intake Total 1220 ml Balance 1220 ml Intake Oral 1220 ml # Voids 5 Physical Exam Abdomen: Soft Heart: Other (heart rate irregular) Extremities: No edema General: Alert HEENT: Atraumatic Lungs: Other (bilateral scattered crepitations) MUSCULOSKELETAL: Osteoarthritic changes both hands Psych/Mental Status: Mood NL Assessment Assessment 1. Atrial fibrillation with rapid ventricular response, probably precipitated by UTI. Heart rate much better controlled since admission. Continue oral Cardizem. Continue eliqui for stroke prophylaxis. 2. Mild acute on chronic systolic heart failure. Probably precipitated by RVR. Improving with diuresis. Recent 2-D echo showed EF 40-45% with [id number]-sthwxexb pericardial effusion (02/11). 3. UTI: Continue antibiotics per IM 4. SSS s/p PPM clinically stable 5. Diabetes mellitus type 2: Treat per IM 6. COPD: Continue current medical regimen Plan Plan of Care Problems Medical Problems: (1) Afib Status: Acute (2) UTI (urinary tract infection) Status: Acute Comment Review of Relevant I have reviewed the following items hi (where applicable) has been applied. Labs Laboratory Tests Test 02/27/19 14:55 02/27/19 16:23 02/27/19 20:46 02/28/19 07:08 [id number] Natriuretic Peptide 5497 pg/mL (0-449) Glucose (Fingerstick) 143 mg/dL (70-99) 217 mg/dL (70-99) 161 mg/dL (70-99) Test 02/28/19 08:25 02/28/19 11:36 Sodium Level 137 mmol/L (136-145) Potassium Level 3.6 mmol/L (3.5-5.1) Chloride Level 99 mmol/L (98-107) Carbon Dioxide Level 30 mmol/L (21-32) Anion Gap 8 (6-14) Blood Urea Nitrogen 24 mg/dL (7-20) Creatinine 1.0 mg/dL (0.6-1.0) Estimated GFR (Cockcroft-Gault) 53.2 Glucose Level 163 mg/dL (70-99) Calcium Level 8.2 mg/dL (8.5-10.1) Glucose (Fingerstick) 145 mg/dL (70-99) Microbiology 02/26/19 Blood Culture - Preliminary, Resulted NO GROWTH AFTER 1 DAY Medications Current Medications Atorvastatin Calcium (Lipitor) 10 mg HS PO Last administered on 02/27/19at 20:47; Start 02/27/19 at 21:00 Ergocalciferol (Vitamin D2) 50,000 unit WEEKLY PO ; Start 03/02/19 at 09:00 Info (Anti-Coagulation Monitoring By Pharmacy) 1 each PRN DAILY PRN MC SEE COMMENTS; Start 02/28/19 at 08:15 Insulin Glargine (Lantus Syringe) 10 unit QHS SQ Last administered on 02/27/19at 20:48; Start 02/27/19 at 21:00 Levofloxacin (Levaquin) 500 mg DAILY06 PO ; Start 03/01/19 at 06:00 Vitals/I & O Vital Sign - Last 24 Hours 02/27/19 02/27/19 02/27/19 02/27/19 12:39 14:18 16:20 18:26 Temp 98.0 98.2 98.0 98.2 Pulse 83 105 Resp 24 24 B/P (MAP) 94/55 (68) 104/56 (72) Pulse Ox 95 92 95 92 O2 Delivery Nasal Cannula Nasal Cannula Nasal Cannula Nasal Cannula O2 Flow Rate 2.0 2.0 2.0 2.0 02/27/19 02/27/19 02/27/19 02/27/19 19:47 20:16 20:44 20:48 Pulse 105 B/P (MAP) 104/56 Pulse Ox 95 O2 Delivery Nasal Cannula Nasal Cannula Nasal Cannula O2 Flow Rate 3.0 2.0 02/27/19 02/27/19 02/27/19 02/28/19 21:44 22:55 23:50 03:12 Temp 98.4 98.1 98.4 98.1 Pulse 90 93 Resp 20 20 20 B/P (MAP) 138/99 (112) 97/63 (74) Pulse Ox 92 96 97 O2 Delivery Nasal Cannula Nasal Cannula Nasal Cannula Nasal Cannula O2 Flow Rate 2.0 2.0 2.0 2.0 02/28/19 02/28/19 02/28/19 02/28/19 04:45 06:34 07:42 09:42 Temp 97.5 97.5 Pulse 95 104 Resp 12 B/P (MAP) 112/64 (80) 112/64 Pulse Ox 97 97 96 O2 Delivery Nasal Cannula Nasal Cannula Nasal Cannula O2 Flow Rate 2.0 2.0 2.0 02/28/19 02/28/19 09:43 10:02 Temp 97.5 97.5 Pulse 103 100 Resp 12 B/P (MAP) 107/59 (75) Pulse Ox 96 O2 Delivery Nasal Cannula O2 Flow Rate 2.0 Intake and Output 02/27/19 02/27/19 02/28/19 14:59 22:59 06:59 Intake Total 480 ml 740 ml 0 ml Balance 480 ml 740 ml 0 ml PREM OSBORNE MD Feb 28, 2019 11:56
[2019-02-28 14:19] VITALS: BP 107/66
[2019-02-28 19:30] VITALS: BP 98/56
[2019-02-28] MEDS: traMADol 50 MG TABLET PO PRN (21:09)
[2019-02-28] MEDS: traZODone 50 MG TABLET. PO SCH (21:09)
[2019-02-28] MEDS: ATORVASTATIN CALCIUM 10 MG TABLET. PO SCH (21:09)
[2019-02-28] MEDS: INSULIN GLARGINE SYRINGE. SQ SCH (21:10)
[2019-02-28 23:05] VITALS: BP 97/58
[2019-03-01] MEDS: ALBUTEROL SULFATE 2.5 MG/3 ML NEBU. NEB SCH ×7 (00:02→23:04)
[2019-03-01 03:30] VITALS: BP 92/56
[2019-03-01 05:45] LABS: HEMOGLOBIN 12.8 g/dL (12.0-15.5); RED BLOOD COUNT 4.84 x10^6/uL (3.50-5.40); RED CELL DISTRIBUTION WIDTH 16.9 % (11.5-14.5)
[2019-03-01 06:05] LABS: ALBUMIN 2.5 g/dL (3.4-5.0); ALBUMIN/GLOBULIN RATIO 0.6 (1.0-1.7); ALK PHOS 132 U/L (46-116); ANION GAP 9 (6-14); AST (SGOT) 14 U/L (15-37); BLOOD UREA NITROGEN 23 mg/dL (7-20); BUN/CREATININE RATIO 23 (6-20); CALCIUM 8.4 mg/dL (8.5-10.1); CARBON DIOXIDE 29 mmol/L (21-32); CHLORIDE 100 mmol/L (98-107); GFR 53.2; GLUCOSE 52 mg/dL (70-99); POTASSIUM 3.8 mmol/L (3.5-5.1); SODIUM 138 mmol/L (136-145); TOTAL BILIRUBIN 0.6 mg/dL (0.2-1.0); TOTAL PROTEIN 6.4 g/dL (6.4-8.2)
[2019-03-01 06:09] LABS: ALT (SGPT) < 6 U/L (14-59)
[2019-03-01 07:00] VITALS: BP 99/63
[2019-03-01] MEDS: INSULIN LISPRO 300 UNITS/3 ML VIAL. SQ SCH ×3 (07:30→16:30)
--- NOTE | 2019-03-01 07:35 | EKG ---
[facility] [address] [place] [address] Test Date: 2019-02-26 Test Time: 17:46:06 Pat Name: SONIA CASTELLANO Department: Room: Gender: F [employer]: : 1935 Requested By: HUNTER CUI Order Number: [id number] Reading MD: Measurements Intervals [place] Rate: 144 P: MS: QRS: 0 QRSD: 64 T: -154 QT: 298 QTc: 466 Interpretive Statements No previous ECG available for comparison
--- NOTE | 2019-03-01 07:35 | PN ---
DATE: 03/01/2019 SUBJECTIVE: The patient is resting, slightly propped up, sleeping comfortably, in no apparent distress. Nursing staff stated that she had an uneventful night. Apparently, she was noted yesterday to have difficulty swallowing and the nursing staff recommended a video swallowing evaluation. She was switched to full liquid diet yesterday. PHYSICAL EXAMINATION: GENERAL: On examining her this morning, she looked well and was clearly in no apparent respiratory distress, pale, but no jaundice, cyanosis or thyromegaly. No jugular venous distention. No limb edema. VITAL SIGNS: Her heart rate was 81, blood pressure was 92/56, temperature 98, respiratory rate was 22 and oxygen saturation was 95% on 3 liters of oxygen. HEAD, EYES, EARS, NOSE AND THROAT: Normocephalic, atraumatic. NECK: Supple. CARDIAC: Normal first and second heart sounds. No gallop or murmur. CHEST: Clear to auscultation. No crepitation or rhonchi. ABDOMEN: Slightly distended, soft, nontender. NEUROLOGIC: She was sleepy, but arousable. All cranial nerves intact. She moves extremities without difficulty. Her intake was 1200, no output was recorded. LABORATORY DATA: As of this morning, her serum sodium was 138, potassium 3.8, chloride 100, bicarbonate 29, anion gap of 9, BUN 23, creatinine 1, estimated GFR was 53 mL per minute. Her calcium was 8.4. Total bilirubin, AST, ALT, alkaline phosphatase were normal. Total protein was 6.4, albumin 2.5. Her white cell count was 9000, hemoglobin 13, hematocrit 40, MCV 83 and platelet count 545,000. ASSESSMENT: 1. Atrial fibrillation with rapid ventricular response, better controlled today on oral Cardizem. 2. Acute on chronic diastolic congestive heart failure. The patient seems to be well compensated. 2. Sick sinus syndrome, status post permanent pacemaker placement. 3. Type 2 diabetes mellitus, seems to be reasonably controlled. 4. Chronic obstructive pulmonary disease, clinically quiescent. 5. Urinary tract infection. PLAN: To continue with oral Levaquin. Continue with physical and occupational therapy. I have consulted the speech therapist and await the result of the urine culture. RISHABH MODI MD DR: JB/kallie JOB#: [id number] / [id number]
[2019-03-01] MEDS: ASPIRIN ENTERIC COATED 81 MG TABLET.DR. PO SCH (08:23)
[2019-03-01] MEDS: APIXABAN 5 MG TABLET. PO SCH ×2 (08:23→20:23)
[2019-03-01] MEDS: POTASSIUM CHLORIDE 20 MEQ TABLET.ER. PO SCH (08:23)
[2019-03-01] MEDS: PANTOPRAZOLE 40 MG TABLET.DR. PO SCH (08:23)
[2019-03-01] MEDS ORDERED: DEXTROSE 50% 25 GM / 50ML DISP.SYRIN. IV PRN (08:30)
[2019-03-01] MEDS ORDERED: IV DEXTROSE 5% 250 ML BAG. IV PRN (08:30)
[2019-03-01] MEDS: FLUTICASONE 50MCG/NASAL SPRAY 16GM BOTTLE. NS SCH (08:35)
[2019-03-01] MEDS: METOPROLOL TART IMMED RELEASE 25 MG TABLET. PO SCH ×2 (09:00→20:25)
[2019-03-01] MEDS: FUROSEMIDE 40 MG TABLET. PO SCH (09:00)
--- NOTE | 2019-03-01 09:05 | NUR ---
Wound Care Pt seen for wound care consultation re: coccyx maceration. Pt assessed, buttocks and coccyx areas slightly reddened and macerated, showing some irritation from incontinence. Teena area cleaned and calazime cream reapplied. Pt repositioned onto right side with pillows, heels floated, no other wounds noted on full skin inspection.
[2019-03-01 11:00] VITALS: BP 97/57
[2019-03-01 15:00] VITALS: BP 97/62
--- NOTE | 2019-03-01 15:07 | PDOC2 ---
GI CONSULT Reason For Consult: n/v with meals HPI: HPI: 83 y/o female admitted w/ A Fib RVR and possible UTI. She is very hard of hearing and not feeling well. Most of history from son Perry who is DPOA and nurse. He says she has not been eating well for at least a month. She takes a few bites of food and then "throws up" (indicates retching) about 5 minutes later. Son says supposed to take omeprazole but hasn't been getting it due to vomiting. Also reports remote h/o his [id number] telling him she "had a flap that didn't work right." He thinks she looks bad today and is concerned she's really sick. Assumes weight loss. No stooling or bleeding concerns. Per nursing, pt won't eat much, hasn't vomited this time. SURGICAL NURSE PRACTITIONER eval w/ concern for esophageal dysphagia. Pt tells me she feels a little nauseated and has some right-sided abd pain. We saw in 2018 for periumbilical and RUQ discomfort, possible heartburn, and solid food dysphagia. Also reported h/o diarrhea (that was not bothersome then). Imaging from 2018 noted cholelithiasis/sludge, diverticulosis, and pre sbyesophagus, and large hiatal hernia. Looks like EGD was planned but not done. Previously reported colonoscopy > 10 years ago @ [facility]. Per past encounter, unaware of liver, pancreas, or PUD history. On ASA and Eliquis. PMH: PMH: A Fib, CAD, HTN, HLD, COPD, pulm HTN, DM, GERD, hiatal hernia, cholelithiasis, diverticulosis, dysphagia, presbyesophagus, OA, osteoporosis, spinal stenosis thoracentesis, pacemaker, thoracentesis FH: Family History: No pertinent hx Social History: Smoke: No ALCOHOL: none Drugs: None ROS: Per HPI. Vitals: Vitals: Vital Signs Date Time Temp Pulse Resp B/P (MAP) Pulse Ox O2 Delivery O2 Flow Rate FiO2 03/01/19 12:54 92 Nasal Cannula 3.0 03/01/19 11:00 74 20 97/57 (70) 03/01/19 07:00 97.6 97.6 Labs: Labs: Laboratory Tests Test 02/28/19 16:41 02/28/19 21:08 1/6/20 05:05 03/01/19 08:17 Glucose (Fingerstick) 127 mg/dL (70-99) 150 mg/dL (70-99) 54 mg/dL (70-99) White Blood Count 9.0 x10^3/uL (4.0-11.0) Red Blood Count 4.84 x10^6/uL (3.50-5.40) Hemoglobin 12.8 g/dL (12.0-15.5) Hematocrit 40.0 % (36.0-47.0) Mean Corpuscular Volume 83 fL (79-100) Mean Corpuscular Hemoglobin 26 pg (25-35) Mean Corpuscular Hemoglobin Concent 32 g/dL (31-37) Red Cell Distribution Width 16.9 % (11.5-14.5) Platelet Count 545 x10^3/uL (140-400) Sodium Level 138 mmol/L (136-145) Potassium Level 3.8 mmol/L (3.5-5.1) Chloride Level 100 mmol/L (98-107) Carbon Dioxide Level 29 mmol/L (21-32) Anion Gap 9 (6-14) Blood Urea Nitrogen 23 mg/dL (7-20) Creatinine 1.0 mg/dL (0.6-1.0) Estimated GFR (Cockcroft-Gault) 53.2 BUN/Creatinine Ratio 23 (6-20) Glucose Level 52 mg/dL (70-99) Calcium Level 8.4 mg/dL (8.5-10.1) Total Bilirubin 0.6 mg/dL (0.2-1.0) Aspartate Amino Transf (AST/SGOT) 14 U/L (15-37) Alanine Aminotransferase (ALT/SGPT) < 6 U/L (14-59) Alkaline Phosphatase 132 U/L (46-116) Total Protein 6.4 g/dL (6.4-8.2) Albumin 2.5 g/dL (3.4-5.0) Albumin/Globulin Ratio 0.6 (1.0-1.7) Test 03/01/19 08:59 03/01/19 10:42 03/01/19 12:15 Glucose (Fingerstick) 75 mg/dL (70-99) 107 mg/dL (70-99) 86 mg/dL (70-99) URINE CULTURE RES 1 Preliminary Yeast isolated. BLOOD CULTURE Preliminary NO GROWTH AFTER 2 DAYS Allergies: Coded Allergies: Penicillins (Verified Allergy, Intermediate, SWELLING, 09/04/17) ibuprofen (Verified Allergy, Intermediate, "FEELS LIKE I'M DYING", 09/04/17) Medications: Current Medications Medications (Trade) Dose Ordered Sig/Dagoberto Route PRN Reason Start Time Stop Time Status Last Admin Dose Admin Levofloxacin (Levaquin) 500 mg DAILY06 PO 03/01/19 06:00 03/01/19 05:54 Trazodone HCl (Desyrel) 50 mg QHS PO 02/28/19 21:00 02/28/19 21:09 Imaging: Imaging: CXR 02/26 IMPRESSION: Cardiomegaly with bibasal infiltrates and pleural effusions as well as increased interstitial markings. Findings would be consistent with congestive heart failur e with some pulmonary edema. SURGICAL NURSE PRACTITIONER Bedside Swallow Eval: No indication of oropharyngeal dysphagia across limited number of trials of puree and thin liquids in this exam. Pt c/o and hx are c/w poss esophageal dysphagia. Unclear if esophageal dysphagia may be playing a role in current pulmonary issues. IMPRESSIONS: Functional oropharyngeal swallow. Pt c/o risk of regurgitation of liquids during this exam is c/w esophageal dysphagia and limited her PO trials during eval d/t same. Would consider GI referral. Overall, appears similar to eval results from 2018 [facility] admit. RECOMMENDATIONS: Continue to recommend GI referral. Ok to advance to Dysphagia I (puree) and continue thin liquids, if c/w pt's preference given current c/o nausea. Will continue SURGICAL NURSE PRACTITIONER f/u to determine safety of PO intake w/ soft or regular solids, when pt is agreeable to attempting. PE: GEN: NAD - resting HEENT: Atraumatic, PERRL LUNGS: NC 3L HEART: irregular ABD: NABS, S/ND, vague right-sided tenderness EXTREMITY: No edema SKIN: No rashes, no jaundice NEURO/PSYCH: [place], difficult history A/P: A/P: A Fib RVR, UTI N/v, anorexia - for 1 month per son H/o dysphagia, presbyesophagus, and large hiatal hernia Cholelithiasis - on past imaging, also had past surgical consult w/ recs for elective cholecystectomy as outpt off Eliquis CRC screen - done in the past Diverticulosis -- ?UGI - will review w/ Dr. Jasso. Agree w/ PPI. JORDANA CHEATHAM Mar 01, 2019 15:07
--- NOTE | 2019-03-01 15:42 | NUR ---
SS following for discharge planning. SS reviewed pt chart. Pt is from home with family and was current on services with [facility]. PT/OT recommending alf unit. SS met with pt and pt's family in room to discuss alf unit and discharge planning. Pt's family declined alf unit and reported that they would like to transition pt to home with hospice services through [facility], ; fax [phone]. SS phoned and faxed referral to [facility]. SS will await further communication from hospice and will proceed accordingly.
--- NOTE | 2019-03-01 17:43 | PDOC ---
PROGRESS NOTES Subjective Subjective Dyspnea improved. Denied any chest pain. Objective Objective Vital Signs Date Time Temp Pulse Resp B/P (MAP) Pulse Ox O2 Delivery O2 Flow Rate FiO2 03/01/19 16:18 97 Nasal Cannula 3.0 03/01/19 15:00 97.3 95 20 97/62 (74) 97.3 Intake and Output 03/01/19 07:00 Intake Total 1100 ml Balance 1100 ml Intake Oral 1100 ml # Voids 3 # Bowel Movements 2 Physical Exam Abdomen: Soft Heart: Other (heart rate irregular) Extremities: No edema General: Alert HEENT: Atraumatic Lungs: Other (bilateral scattered crepitations) MUSCULOSKELETAL: Osteoarthritic changes both hands Psych/Mental Status: Mood NL Assessment Assessment 1. Atrial fibrillation with rapid ventricular response, probably precipitated by UTI. Heart rate much better controlled since admission. Continue oral Cardizem. Continue eliquis for stroke prophylaxis. 2. Mild acute on chronic systolic heart failure. Probably precipitated by RVR. Improved with diuresis. Recent 2-D echo showed EF 40-45% with [id number] pericardial effusion (02/11). 3. UTI: Continue antibiotics per IM 4. SSS s/p PPM clinically stable 5. Diabetes mellitus type 2: Treat per IM 6. COPD: Continue current medical regimen Plan Plan of Care Problems Medical Problems: (1) Afib Status: Acute (2) UTI (urinary tract infection) Status: Acute Comment Review of Relevant I have reviewed the following items hi (where applicable) has been applied. Labs Laboratory Tests Test 02/28/19 21:08 03/01/19 05:05 03/01/19 08:17 03/01/19 08:59 Glucose (Fingerstick) 150 mg/dL (70-99) 54 mg/dL (70-99) 75 mg/dL (70-99) White Blood Count 9.0 x10^3/uL (4.0-11.0) Red Blood Count 4.84 x10^6/uL (3.50-5.40) Hemoglobin 12.8 g/dL (12.0-15.5) Hematocrit 40.0 % (36.0-47.0) Mean Corpuscular Volume 83 fL (79-100) Mean Corpuscular Hemoglobin 26 pg (25-35) Mean Corpuscular Hemoglobin Concent 32 g/dL (31-37) Red Cell Distribution Width 16.9 % (11.5-14.5) Platelet Count 545 x10^3/uL (140-400) Sodium Level 138 mmol/L (136-145) Potassium Level 3.8 mmol/L (3.5-5.1) Chloride Level 100 mmol/L (98-107) Carbon Dioxide Level 29 mmol/L (21-32) Anion Gap 9 (6-14) Blood Urea Nitrogen 23 mg/dL (7-20) Creatinine 1.0 mg/dL (0.6-1.0) Estimated GFR (Cockcroft-Gault) 53.2 BUN/Creatinine Ratio 23 (6-20) Glucose Level 52 mg/dL (70-99) Calcium Level 8.4 mg/dL (8.5-10.1) Total Bilirubin 0.6 mg/dL (0.2-1.0) Aspartate Amino Transf (AST/SGOT) 14 U/L (15-37) Alanine Aminotransferase (ALT/SGPT) < 6 U/L (14-59) Alkaline Phosphatase 132 U/L (46-116) Total Protein 6.4 g/dL (6.4-8.2) Albumin 2.5 g/dL (3.4-5.0) Albumin/Globulin Ratio 0.6 (1.0-1.7) Test 03/01/19 10:42 03/01/19 12:15 03/01/19 17:10 Glucose (Fingerstick) 107 mg/dL (70-99) 86 mg/dL (70-99) 134 mg/dL (70-99) Microbiology 02/26/19 Urine Culture - Preliminary, Resulted 02/26/19 Urine Culture Result 1 (CHANTELLE) - Preliminary, Resulted 02/26/19 Blood Culture - Preliminary, Resulted NO GROWTH AFTER 2 DAYS Medications Current Medications Dextrose (Dextrose 50%-Water Syringe) 12.5 gm PRN Q15MIN PRN IV SEE COMMENTS; Start 03/01/19 at 08:30 Dextrose (Iv Dextrose 5%) 250 ml PRN Q15MIN PRN IV SEE COMMENTS; Start 03/01/19 at 08:30 Ergocalciferol (Vitamin D2) 50,000 unit WEEKLY PO ; Start 03/02/19 at 09:00 Insulin Glargine (Lantus Syringe) 6 unit QHS SQ ; Start 03/01/19 at 21:00 Lactobacillus Rhamnosus (Culturelle) 1 cap BID PO ; Start 03/01/19 at 21:00 Levofloxacin (Levaquin) 500 mg DAILY06 PO Last administered on 03/01/19at 05:54; Start 03/01/19 at 06:00 Trazodone HCl (Desyrel) 50 mg QHS PO Last administered on 02/28/19at 21:09; Start 02/28/19 at 21:00 Vitals/I & O Vital Sign - Last 24 Hours 02/28/19 02/28/19 02/28/19 02/28/19 19:30 19:50 19:59 21:09 Temp 97.3 97.3 Pulse 95 95 Resp 20 B/P (MAP) 98/56 (70) 98/56 Pulse Ox 92 89 O2 Delivery Nasal Cannula Nasal Cannula Room Air O2 Flow Rate 3.0 3.0 02/28/19 02/28/19 02/28/19 03/01/19 21:09 22:09 23:05 00:02 Temp 97.7 97.7 Pulse 81 Resp 20 20 22 B/P (MAP) 97/58 (71) Pulse Ox 95 95 O2 Delivery Nasal Cannula Nasal Cannula Nasal Cannula Nasal Cannula O2 Flow Rate 3.0 3.0 3.0 2.0 03/01/19 03/01/19 03/01/19 03/01/19 03:30 04:35 07:00 08:00 Temp 98.0 97.6 98.0 97.6 Pulse 81 77 Resp 22 20 B/P (MAP) 92/56 (68) 99/63 (75) Pulse Ox 95 93 O2 Delivery Nasal Cannula Nasal Cannula Nasal Cannula Nasal Cannula O2 Flow Rate 3.0 2.0 3.0 3.0 03/01/19 03/01/19 03/01/19 03/01/19 09:11 11:00 12:54 15:00 Temp 97.3 97.3 Pulse 74 95 Resp 20 20 B/P (MAP) 97/57 (70) 97/62 (74) Pulse Ox 96 98 92 100 O2 Delivery Nasal Cannula Nasal Cannula Nasal Cannula Nasal Cannula O2 Flow Rate 3.0 3.0 3.0 3.0 03/01/19 16:18 Pulse Ox 97 O2 Delivery Nasal Cannula O2 Flow Rate 3.0 Intake and Output 02/28/19 02/28/19 03/01/19 15:00 23:00 07:00 Intake Total 240 ml 500 ml 360 ml Balance 240 ml 500 ml 360 ml PREM OSBORNE MD Mar 01, 2019 17:43
--- NOTE | 2019-03-01 18:57 | NUR ---
Patient unable to eat much dinner, she vomited/regurgitated approximately 20cc of liquid broth.
[2019-03-01 19:20] VITALS: BP 89/58
[2019-03-01] MEDS: traZODone 50 MG TABLET. PO SCH (20:23)
[2019-03-01] MEDS: ATORVASTATIN CALCIUM 10 MG TABLET. PO SCH (20:23)
[2019-03-01] MEDS: traMADol 50 MG TABLET PO PRN (20:24)
[2019-03-01] MEDS: LACTOBACILLUS RHAMNOSUS GG 1 CAPSULE. PO SCH (20:24)
[2019-03-01] MEDS: INSULIN GLARGINE SYRINGE. SQ SCH (20:25)
[2019-03-01 23:10] VITALS: BP 90/53
[2019-03-02] VITALS (15 sets, daily range): BP systolic 89–111; BP diastolic 52–69
[2019-03-02] MEDS: ALBUTEROL SULFATE 2.5 MG/3 ML NEBU. NEB SCH ×5 (04:22→20:10)
[2019-03-02] MEDS: INSULIN LISPRO 300 UNITS/3 ML VIAL. SQ SCH ×3 (07:30→16:30)
--- NOTE | 2019-03-02 08:04 | PN ---
DATE: 03/02/2019 SUBJECTIVE: The patient is resting slightly propped up in bed, sleeping comfortably, in no apparent distress. Nursing staff did not voice any concerns that she had an eventful night. Apparently, her son stated that she has been complaining of nausea and vomiting with meals. She was seen by the speech therapist and apparently she seemed to have some form of esophageal dysphagia rather than oropharyngeal dysphagia and she is actually scheduled for esophagogastroduodenoscopy today. PHYSICAL EXAMINATION: GENERAL: When I examined her this morning, she looked pale, somewhat cachectic, but no jaundice, cyanosis or thyromegaly. No jugular venous distention. No limb edema. VITAL SIGNS: Her heart rate was 108, blood pressure 95/53, temperature 98.4, respiratory rate 20, and oxygen saturation was 95% on 3 liters of oxygen. HEAD, EYES, EARS, NOSE AND THROAT: Showed normocephalic, atraumatic. NECK: Supple. CARDIAC: Normal first and second heart sounds. No gallop or murmur. CHEST: Clear to auscultation. No crepitation or rhonchi. ABDOMEN: Distended, soft, nontender. NEUROLOGIC: She is sleepy, but arousable. All cranial nerves are intact. She moves extremities without difficulty. EXTREMITIES: Showed no clubbing, cyanosis or edema. Her intake over the last 24 hours was 1100, no output was recorded. LABORATORY DATA: As of yesterday, her serum sodium was 138, potassium 3.8, chloride 100, bicarbonate 29, anion gap of 9, BUN 23, creatinine 1, estimated GFR was 53 mL per minute. Her glucose was low at 52. I did cut down her Lantus. Her calcium was 8.4. Total bilirubin, AST, ALT were normal. Alkaline phosphatase slightly elevated. Total protein 6.4, albumin was 2.5. Her hemoglobin was 13, hematocrit 40 with normal white cell count and platelets. ASSESSMENT: 1. Atrial fibrillation with rapid ventricular response, better controlled on oral Cardizem. 2. Jjfos-kl-[id number] diastolic congestive heart failure, this seems to be well compensated. 3. Sick sinus syndrome, status post permanent pacemaker placement. 4. Type 2 diabetes mellitus, seems to be reasonably controlled. 5. Chronic obstructive pulmonary disease, clinically quiescent. 6. Urinary tract infection for which she is on oral Levaquin. 7. Dysphagia, seems to be mostly esophageal for which she is scheduled for esophagogastroduodenoscopy. RISHABH MODI MD DR: JB/kallie JOB#: [id number] / [id number]
[2019-03-02] MEDS: FUROSEMIDE 40 MG TABLET. PO SCH (09:00)
[2019-03-02] MEDS: FLUTICASONE 50MCG/NASAL SPRAY 16GM BOTTLE. NS SCH (09:00)
[2019-03-02] MEDS ORDERED: ERGOCALCIFEROL (VITAMIN D2) 50,000 UNIT CAPSULE. PO SCH (09:00)
[2019-03-02] MEDS: IV RINGERS,LACTATED 1000ML 1,000 ML IV SCH ×2 (09:14→22:35)
[2019-03-02] MEDS ORDERED: PROPOFOL 20 ML IV ONE (09:55)
[2019-03-02] MEDS ORDERED: LIDOCAINE 2% PF 5 ML VIAL. ONE (09:55)
--- NOTE | 2019-03-02 10:05 | PDOC4 ---
PROCEDURE Procedure EGD Indication: N, V, Dysphagia? Meds: per anesthesia Findings: E--Not much motility appreciated. No obstruction to endoscope passage. No visible reflux changes. G--large HH D--Normal to second portion. Elijah. well. IMP: Hiatal hernia. Suspect esophageal dysmotility. REC: Barium swallow. Consider prokinetic. Continue anti-secretory. WEST HEIN MD Mar 02, 2019 10:05
[2019-03-02] MEDS ORDERED: BARIUM SULFATE 60% 355 ML SUSP PO ONE (11:15)
[2019-03-02] MEDS ORDERED: BARIUM SULFATE 340 GM SUSPENSION. PO ONE (11:15)
[2019-03-02] MEDS: ANTI-COAG MONITOR BY PHARMACY. MC PRN (12:51)
[2019-03-02] MEDS: ASPIRIN ENTERIC COATED 81 MG TABLET.DR. PO SCH (13:13)
[2019-03-02] MEDS: APIXABAN 5 MG TABLET. PO SCH ×2 (13:14→20:20)
[2019-03-02] MEDS: LACTOBACILLUS RHAMNOSUS GG 1 CAPSULE. PO SCH ×2 (13:14→20:20)
[2019-03-02] MEDS: PANTOPRAZOLE 40 MG TABLET.DR. PO SCH (13:14)
[2019-03-02] MEDS: POTASSIUM CHLORIDE 20 MEQ TABLET.ER. PO SCH (13:14)
[2019-03-02] MEDS: METOPROLOL TART IMMED RELEASE 25 MG TABLET. PO SCH ×3 (14:37→20:25)
--- NOTE | 2019-03-02 14:55 | NUR ---
SS following up with discharge planning. Pt accepted on services with [facility], ; fax [phone]. SS awaiting DME delivery and will proceed accordingly.
--- NOTE | 2019-03-02 15:09 | RAD ---
Examination: ESOPHAGRAM/BARIUM SWALLOW History: Dysphagia. Normal EGD. Comparison/Correlation: None Findings: Single contrast esophagram was performed utilizing 1.1 minutes of fluoroscopy. The patient was in the supine reverse Trendelenburg position for this exam. Patient reportedly was not able to stand for this exam. A total of 6 fluoroscopic images were acquired. AP view of the chest was obtained at the conclusion of the exam by standard technique. Oral contrast was administered. Presbyesophagus is notable about the visualized esophagus. No stricture or suspicious filling defect. Moderate size hiatal hernia is present. Retrograde flow of contrast is noted within the esophagus. Contrast is noted to reach the level of the oropharynx due to retrograde motion. Prolonged retention of contrast within the esophagus is notable. Upright AP view chest obtained approximately 10 minutes following oral contrast demonstrates retention of contrast within the upper thoracic esophageal level. Cardiomegaly is present with pulmonary vasculature congestion and small right pleural effusion. Left basilar pleural effusion and consolidation noted. Impression: Very prolonged transit of contrast through the esophagus is noted. Retrograde motion of contrast within the esophagus up to the oropharynx is noted. Hiatal hernia evident. Stricture is not definitely seen involving the distal esophagus. Bibasilar pleural effusions and opacification of the lung bases greater on the left. Electronically signed by: Carlos Cruz MD (03/02/2019 3:06 PM) [facility]
[2019-03-02] MEDS ORDERED: DIGOXIN IV 500 MCG/2 ML AMPUL. IV ONE (16:15)
--- NOTE | 2019-03-02 16:17 | PDOC ---
CARDIO Progress Notes Date and Time Date of Service 03/02/2019 Time of Evaluation 1550 Subjective Subjective: No Chest Pain, No shortness of breath, No Palpitations Vitals Vitals Vital Signs Date Time Temp Pulse Resp B/P (MAP) Pulse Ox O2 Delivery O2 Flow Rate FiO2 03/02/19 15:00 97.4 126 22 96/63 (74) 97 Nasal Cannula 3.0 97.4 Weight Weight [ ] Input and Output Intake and Output Intake and Output0 03/02/19 07:00 Intake Total 550 ml Output Total 20 ml Balance 530 ml Intake Oral 550 ml Output Oral Regurgitation 20 ml # Voids 1 # Bowel Movements 1 Laboratory Labs Laboratory Tests Test 03/01/19 17:10 03/01/19 19:43 03/02/19 08:18 03/02/19 12:25 Glucose (Fingerstick) 134 mg/dL (70-99) 147 mg/dL (70-99) 89 mg/dL (70-99) 89 mg/dL (70-99) Microbiology Micro Microbiology 02/26/19 Urine Culture - Preliminary, Resulted 02/26/19 Urine Culture Result 1 (CHANTELLE) - Preliminary, Resulted 02/26/19 Blood Culture - Preliminary, Resulted NO GROWTH AFTER 3 DAYS Physical Exam HEENT: Neck Supple W Full Motion, Other ([place]) Chest: Symmetric LUNGS: Other (basilar crackles) Heart: irregularly irregular (AFIB RVR) Abdomen: Other (soft) Extremities: Other (1+ bilateral LE pitting edema) Neurology: alert, follow commands, other (Ox2) Assessment Assessment 1. Atrial fibrillation with rapid ventricular response: HR in the 115s 2. Mild acute on chronic systolic heart failure. EF 40-45% with [id number] pericardial effusion (02/11). Likely precipitated by COPD with possible aspiration and RVR. 3. UTI: Continue antibiotics per IM 4. SSS s/p PPM clinically stable 5. Diabetes mellitus type 2: Treat per IM 6. Mild AECOPD with possible aspiration 7. S/P EGD; noted with hiatal hernia and esophageal dysmotility 8. Debility/frailty Recommendations 1. metoprolol just given due to being NPO for EGD. Given she is post sedation and BP at low end will hold cardizem. Digoxin IV x1. 2. If not NPO then will resume eliquis for stroke prevention at 2.5 mg bid..No significant indication for ASA currently will DC to decrease risk for bleed. 3. Will need further discussion in regards to her goals of care. Maintain conservative measures. 4. Lasix therapy ONEIDA SWANSON HOSPITALIST MEDICAL DIRECTOR Mar 02, 2019 16:17
[2019-03-02 16:54] LABS: CALCIUM 8.2 mg/dL (8.5-10.1); GFR 53.2; POTASSIUM 4.4 mmol/L (3.5-5.1)
[2019-03-02] MEDS: ATORVASTATIN CALCIUM 10 MG TABLET. PO SCH (20:20)
[2019-03-02] MEDS: traMADol 50 MG TABLET PO PRN (20:21)
[2019-03-02] MEDS: traZODone 50 MG TABLET. PO SCH (20:29)
[2019-03-02] MEDS: INSULIN GLARGINE SYRINGE. SQ SCH (20:37)
[2019-03-03] MEDS: ALBUTEROL SULFATE 2.5 MG/3 ML NEBU. NEB SCH ×7 (00:10→23:37)
[2019-03-03 03:00] VITALS: BP 98/57
[2019-03-03 07:00] VITALS: BP 95/59
[2019-03-03] MEDS: INSULIN LISPRO 300 UNITS/3 ML VIAL. SQ SCH ×3 (07:30→17:55)
[2019-03-03] MEDS: METOCLOPRAMIDE 5 MG TABLET. PO SCH ×2 (08:00→10:59)
[2019-03-03] MEDS ORDERED: DIGOXIN IV 500 MCG/2 ML AMPUL. IV ONE (08:15)
[2019-03-03 08:40] LABS: HEMATOCRIT 37.3 % (36.0-47.0); RED BLOOD COUNT 4.55 x10^6/uL (3.50-5.40); RED CELL DISTRIBUTION WIDTH 17.2 % (11.5-14.5); WHITE BLOOD COUNT 7.6 x10^3/uL (4.0-11.0)
[2019-03-03] MEDS: FUROSEMIDE 40 MG TABLET. PO SCH ×2 (09:00→14:45)
[2019-03-03 09:05] LABS: ALBUMIN 2.2 g/dL (3.4-5.0); ALBUMIN/GLOBULIN RATIO 0.6 (1.0-1.7); ALK PHOS 113 U/L (46-116); ANION GAP 7 (6-14); AST (SGOT) 9 U/L (15-37); BLOOD UREA NITROGEN 20 mg/dL (7-20); BUN/CREATININE RATIO 20 (6-20); CALCIUM 7.7 mg/dL (8.5-10.1); CARBON DIOXIDE 31 mmol/L (21-32); CHLORIDE 101 mmol/L (98-107); GFR 53.2; GLUCOSE 145 mg/dL (70-99); POTASSIUM 3.8 mmol/L (3.5-5.1); SODIUM 139 mmol/L (136-145); TOTAL BILIRUBIN 0.6 mg/dL (0.2-1.0); TOTAL PROTEIN 5.6 g/dL (6.4-8.2)
[2019-03-03 09:07] LABS: ALT (SGPT) < 6 U/L (14-59)
--- NOTE | 2019-03-03 09:10 | PDOC ---
Subjective: Subjective: "I can't hear and I'm tired." Objective: Objective: D/w nurse - not sure how she ate last night and breakfast hasn't come yet this morning. Has cheese puffs and told material handler 2nd shift she's not sharing. Has Reglan tablets ordered TID. Vital Signs: Vital Signs Date Time Temp Pulse Resp B/P (MAP) Pulse Ox O2 Delivery O2 Flow Rate FiO2 03/03/19 07:37 98 Nasal Cannula 2.0 03/03/19 07:00 97.7 95 20 95/59 (71) 97.7 Labs: Laboratory Tests Test 03/02/19 12:25 03/02/19 16:30 03/02/19 17:17 03/02/19 20:34 Glucose (Fingerstick) 89 mg/dL 163 mg/dL 168 mg/dL Sodium Level 136 mmol/L Potassium Level 4.4 mmol/L Chloride Level 101 mmol/L Carbon Dioxide Level 28 mmol/L Anion Gap 7 Blood Urea Nitrogen 24 mg/dL Creatinine 1.0 mg/dL Estimated GFR (Cockcroft-Gault) 53.2 Glucose Level 170 mg/dL Calcium Level 8.2 mg/dL Magnesium Level 1.9 mg/dL Test 03/03/19 07:45 03/03/19 07:54 White Blood Count 7.6 x10^3/uL Red Blood Count 4.55 x10^6/uL Hemoglobin 12.0 g/dL Hematocrit 37.3 % Mean Corpuscular Volume 82 fL Mean Corpuscular Hemoglobin 26 pg Mean Corpuscular Hemoglobin Concent 32 g/dL Red Cell Distribution Width 17.2 % Platelet Count 359 x10^3/uL Glucose (Fingerstick) 170 mg/dL BLOOD CULTURE Preliminary NO GROWTH AFTER 4 DAYS Imaging: EGD 03/02 E--Not much motility appreciated. No obstruction to endoscope passage. No visible reflux changes. G--large HH D--Normal to second portion. IMP: Hiatal hernia. Suspect esophageal dysmotility. Esophagus X-Ray 03/02 Impression: Very prolonged transit of contrast through the esophagus is noted. Retrograde motion of contrast within the esophagus up to the oropharynx is noted. Hiatal hernia evident. Stricture is not definitely seen involving the distal esophagus. Bibasilar pleural effusions and opacification of the lung bases greater on the left. CXR 03/03 pending PE: GEN: NAD - was sleeping - bag of cheese puffs on bedside table LUNGS: on NC w/ wet cough during exam HEART: borderline tachycardia ABD: S/ND/NT NEURO/PSYCH: A & O 3 - hard of hearing A/P: N/v, anorexia Esophageal dysmotility, large hiatal hernia -- Has full liquid diet ordered. On PPI, also has Reglan ordered. Not clear if sh e has tolerated diet since testing yesterday. Other per Dr. Jasso. JORDANA CHEATHAM Mar 03, 2019 09:10
--- NOTE | 2019-03-03 09:19 | RAD ---
EXAM: Chest, single view. HISTORY: Congestive heart failure. COMPARISON: 02/26/2019. FINDINGS: A frontal view of the chest obtained. There is diffuse central predominant infiltrate with small to moderate pleural effusions and cardiomegaly. There is no pneumothorax. There is a cardiac pacemaker in expected position. There is contrast within the colon. There is bone demineralization. IMPRESSION: Stable suspected pulmonary congestion with associated small to moderate pleural effusions and cardiomegaly. Electronically signed by: Dana Valdes MD (03/03/2019 9:16 AM) [place] [id number]
[2019-03-03] MEDS: ANTI-COAG MONITOR BY PHARMACY. MC PRN (09:58)
[2019-03-03] MEDS: FLUTICASONE 50MCG/NASAL SPRAY 16GM BOTTLE. NS SCH (10:50)
[2019-03-03] MEDS: PANTOPRAZOLE 40 MG TABLET.DR. PO SCH (10:51)
[2019-03-03] MEDS: ASPIRIN ENTERIC COATED 81 MG TABLET.DR. PO SCH (10:51)
[2019-03-03] MEDS: LACTOBACILLUS RHAMNOSUS GG 1 CAPSULE. PO SCH ×2 (10:51→21:40)
[2019-03-03] MEDS: POTASSIUM CHLORIDE 20 MEQ TABLET.ER. PO SCH (10:51)
[2019-03-03] MEDS: APIXABAN 5 MG TABLET. PO SCH ×2 (10:57→21:39)
[2019-03-03 11:13] VITALS: BP 97/56
--- NOTE | 2019-03-03 13:03 | PDOC ---
ONEIDA SWANSON EGG PROCESSOR 03/03/19 1303: CARDIO Progress Notes Date and Time Date of Service 03/03/2019 Time of Evaluation 1250 Subjective Subjective: No Chest Pain, No shortness of breath, No Palpitations Vitals Vitals Vital Signs Date Time Temp Pulse Resp B/P (MAP) Pulse Ox O2 Delivery O2 Flow Rate FiO2 03/03/19 11:58 Nasal Cannula 2.0 03/03/19 11:24 106 97/56 03/03/19 11:13 98.1 18 96 98.1 Weight Weight [ ] Input and Output Intake and Output Intake and Output 03/03/19 07:00 Intake Total 700 ml Output Total 100 ml Balance 600 ml Intake Oral 400 ml IV Total 300 ml Output Oral Regurgitation 100 ml # Voids 3 # Bowel Movements 1 Laboratory Labs Laboratory Tests Test 03/02/19 16:30 03/02/19 17:17 03/02/19 20:34 03/03/19 07:45 Sodium Level 136 mmol/L (136-145) 139 mmol/L (136-145) Potassium Level 4.4 mmol/L (3.5-5.1) 3.8 mmol/L (3.5-5.1) Chloride Level 101 mmol/L (98-107) 101 mmol/L (98-107) Carbon Dioxide Level 28 mmol/L (21-32) 31 mmol/L (21-32) Anion Gap 7 (6-14) 7 (6-14) Blood Urea Nitrogen 24 mg/dL (7-20) 20 mg/dL (7-20) Creatinine 1.0 mg/dL (0.6-1.0) 1.0 mg/dL (0.6-1.0) Estimated GFR (Cockcroft-Gault) 53.2 53.2 Glucose Level 170 mg/dL (70-99) 145 mg/dL (70-99) Calcium Level 8.2 mg/dL (8.5-10.1) 7.7 mg/dL (8.5-10.1) Magnesium Level 1.9 mg/dL (1.8-2.4) Glucose (Fingerstick) 163 mg/dL (70-99) 168 mg/dL (70-99) White Blood Count 7.6 x10^3/uL (4.0-11.0) Red Blood Count 4.55 x10^6/uL (3.50-5.40) Hemoglobin 12.0 g/dL (12.0-15.5) Hematocrit 37.3 % (36.0-47.0) Mean Corpuscular Volume 82 fL (79-100) Mean Corpuscular Hemoglobin 26 pg (25-35) Mean Corpuscular Hemoglobin Concent 32 g/dL (31-37) Red Cell Distribution Width 17.2 % (11.5-14.5) Platelet Count 359 x10^3/uL (140-400) BUN/Creatinine Ratio 20 (6-20) Total Bilirubin 0.6 mg/dL (0.2-1.0) Aspartate Amino Transf (AST/SGOT) 9 U/L (15-37) Alanine Aminotransferase (ALT/SGPT) < 6 U/L (14-59) Alkaline Phosphatase 113 U/L (46-116) Total Protein 5.6 g/dL (6.4-8.2) Albumin 2.2 g/dL (3.4-5.0) Albumin/Globulin Ratio 0.6 (1.0-1.7) Test 03/03/19 07:54 03/03/19 11:35 Glucose (Fingerstick) 170 mg/dL (70-99) 145 mg/dL (70-99) Microbiology Micro Microbiology 02/26/19 Urine Culture - Final, Complete 02/26/19 Urine Culture Result 1 (CHANTELLE) - Final, Complete 02/26/19 Urine Culture Result 2 (CHANTELLE) - Final, Complete 02/26/19 Antimicrobic Susceptibility - Final, Complete 02/26/19 Blood Culture - Preliminary, Resulted NO GROWTH AFTER 4 DAYS Physical Exam HEENT: Neck Supple W Full Motion, Other ([place]) Chest: Symmetric LUNGS: Other (basilar crackles) Heart: irregularly irregular (AFIB RVR) Abdomen: Other (soft) Extremities: Other (1+ bilateral LE pitting edema) Neurology: alert, oriented, follow commands Assessment Assessment 1. Atrial fibrillation with rapid ventricular response: HR in the 115s 2. Mild acute on chronic systolic heart failure. EF 40-45% with [id number] pericardial effusion (02/11). appears compensated 3. UTI: Continue antibiotics per IM 4. SSS s/p PPM clinically stable 5. Diabetes mellitus type 2: Treat per IM 6. Mild AECOPD with possible aspiration 7. S/P EGD; noted with hiatal hernia and esophageal dysmotility 8. Debility/frailty Recommendations 1. BP remains marginally low. Dig IV x1. Continue metoprolol. Hold cardizem as s he will likely not tolerate this with her BP being low. 2. Eliquis for stroke prevention at 2.5 mg bid..No significant indication for ASA currently will DC to decrease risk for bleed. 3. Will need further discussion in regards to her goals of care. Maintain conservative measures. 4. Lasix therapy PREM OSBORNE MD 03/03/19 1723: CARDIO Progress Notes Assessment Assessment Patient seen and examined. Agree with INTERNAL GRINDER SET UP OPERATOR's assessment and plan. Agree with digoxin for better rate control and eliquis for stroke prophylaxis ONEIDA SWANSON APRN Mar 03, 2019 13:03 PREM OSBORNE MD Mar 03, 2019 17:23
--- NOTE | 2019-03-03 13:13 | PN ---
DATE: 03/03/2019 SUBJECTIVE: The patient is resting, slightly propped up in bed, in no apparent distress. On questioning her, she denied any complaints, in particular denied any chest pain or shortness of breath. She did have an upper GI endoscopy, which showed that she has large hiatal hernia and also seems to be esophageal dysmotility with a plan to arrange for her to have esophagogram. PHYSICAL EXAMINATION: GENERAL: When I examined her this morning, she was pale, but no jaundice or cyanosis. No lymphadenopathy, no thyromegaly. No jugular venous distention. No limb edema. VITAL SIGNS: Her heart rate was 103, blood pressure was 98/57, temperature 98, respiratory rate was 20, and oxygen saturation was 98% on 2 liters of oxygen. HEAD, EYES, EARS, NOSE AND THROAT: Showed normocephalic, atraumatic. NECK: Supple. HEART: Normal first and second sounds. No gallop or murmur. CHEST: Showed central trachea, equal bilateral chest expansion, air entry, vesicular sounds with very few scattered rhonchi. ABDOMEN: Slightly distended, soft, nontender. NEUROLOGIC: She is very hard of hearing, but otherwise all her cranial nerves are intact. She moves all extremities without difficulty, although she has been mostly bed bound. Her intake over the last 24 hours was 550, no output was recorded. LABORATORY DATA: As of yesterday, her serum sodium was 136, potassium 4.4, chloride 101, bicarbonate 28, anion gap of 7, BUN 24, creatinine 1, estimated GFR was 53 mL per minute. Her calcium was 8.2 and magnesium was 1.9. ASSESSMENT: 1. Atrial fibrillation with rapid ventricular response, better controlled on oral Cardizem. 2. Acute on chronic diastolic congestive heart failure seems to be well compensated. 3. Sick sinus syndrome, status post permanent pacemaker placement. 4. Type 2 diabetes mellitus seems to be reasonably controlled. 5. Chronic obstructive pulmonary disease, clinically quiescent. 6. Urinary tract infection for which she is on oral Levaquin. 7. Dysphagia, felt to be esophageal instead of oropharyngeal and she did have esophagogastroduodenoscopy, which showed that she has esophageal dysmotility as well as large hiatal hernia. PLAN: Plan is to arrange for barium swallow and she was started on Protonix. I will add Reglan 5 mg before meals. RISHABH MODI MD DR: Johan JOB#: [id number] / [id number]
--- NOTE | 2019-03-03 13:37 | NUR ---
Patient's son Perry related that he would like a feeding tube to be considered if his mother is unable to get enough nutrition. He also related that his mother will be starting on hospice, but wanted esophagus problems "fixed" before going home.
[2019-03-03 15:00] VITALS: BP 116/61
[2019-03-03] MEDS ORDERED: METOCLOPRAMIDE ORAL SOLN 10 MG/10 ML SOLUTION. PO SCH (16:30)
[2019-03-03 19:00] VITALS: BP 108/63
[2019-03-03] MEDS: traZODone 50 MG TABLET. PO SCH (21:38)
[2019-03-03] MEDS: ATORVASTATIN CALCIUM 10 MG TABLET. PO SCH (21:38)
[2019-03-03] MEDS: METOPROLOL TART IMMED RELEASE 25 MG TABLET. PO SCH (21:40)
[2019-03-03] MEDS: INSULIN GLARGINE SYRINGE. SQ SCH (21:44)
[2019-03-03 23:00] VITALS: BP 93/51
[2019-03-04 03:10] VITALS: BP 98/58
[2019-03-04] MEDS: ALBUTEROL SULFATE 2.5 MG/3 ML NEBU. NEB SCH ×4 (03:50→16:16)
[2019-03-04 07:00] VITALS: BP 98/57
[2019-03-04] MEDS: INSULIN LISPRO 300 UNITS/3 ML VIAL. SQ SCH ×3 (07:30→16:30)
--- NOTE | 2019-03-04 07:53 | PN ---
DATE: 03/04/2019 SUBJECTIVE: The patient is resting, slightly propped up in bed, in no apparent respiratory distress. On questioning her, she denied any complaint. She apparently has had an EGD done, which showed that her esophagus has severe dysmotility; however, no obstruction to endoscope passage. No visible reflux changes. He was found to have a large hiatus hernia, but duodenum was normal to second portion and he did recommend barium swallow and apparently that was done, which showed that very prolonged transit of contrast through the esophagus is noted. Retrograde motion of contrast within the esophagus up to the oropharynx is noted. Hiatal hernia is evident. Stricture is not definitely seen involving the distal esophagus. The patient has bibasilar pleural effusion with opacification of the lung bases, greater on the left. Apparently, the [facility] and waiting on a delivery of her hospital bed, but her son apparently wanted a feeding tube to be considered with if his mother is unable to get enough nutrition. He also relates that his mother would be starting on hospice, but wanted esophagus problem fixed before going home. PHYSICAL EXAMINATION: GENERAL: When I examined her this morning, she was resting slightly propped up in bed, sleeping comfortably, in no apparent distress. She was somewhat pale, but no jaundice, cyanosis or thyromegaly. No jugular venous distension. No lower limb edema. VITAL SIGNS: Her heart rate was 106, blood pressure was 98/58, temperature 97.4, respiratory rate was 16, and oxygen saturation was 97% on 2 liters of oxygen. HEAD, EYES, EARS, NOSE AND THROAT: Showed normocephalic, atraumatic. NECK: Supple. HEART: Showed normal first and second heart sounds. No gallop or murmur. CHEST: Clear to auscultation. No crepitation or rhonchi. ABDOMEN: Distended, soft, nontender. NEUROLOGIC: She is very hard of hearing, otherwise all cranial nerves are intact. She moves extremities without difficulty. Her intake was 700, output was 100 as of yesterday. LABORATORY DATA: White count 7.6, hemoglobin 12, hematocrit 37, MCV 82 and platelet count 359,000. Serum sodium was 139, potassium 3.8, chloride 101, bicarbonate 31, anion gap of 7, BUN 20, creatinine 1, estimated GFR was 53 mL per minute. Her glucose 145, calcium was 7.7. Total bilirubin, AST, ALT, alkaline phosphatase were normal. Total protein 5.6, albumin 2.2. ASSESSMENT AND PLAN: 1. Dysphagia due to esophageal dysmotility with prolonged transit time and large hiatal hernia and severe esophageal reflux disease. 2. Atrial fibrillation with rapid ventricular response, better controlled on oral Cardizem. 3. Acute on chronic diastolic congestive heart failure, seems to be well compensated. 4. Sick sinus syndrome, status post permanent pacemaker placement. 5. Type 2 diabetes mellitus that seems to be reasonably controlled. 6. Chronic obstructive pulmonary disease, clinically quiescent. 7. Urinary tract infection for which she is on oral Levaquin. 8. I am not sure a gastrostomy tube will be the right thing to do for this lady. However, I will consult the Gastroenterology team for placement of a gastrostomy tube as requested by her son. RISHABH MODI MD DR: JB/kallie JOB#: [id number] / [id number]
[2019-03-04] MEDS ORDERED: DIGOXIN 125 MCG TABLET. PO SCH (09:00)
--- NOTE | 2019-03-04 09:52 | PDOC ---
Subjective: Subjective: Didn't throw up but swallowed some liquids that came back up before they got to her stomach. Objective: Objective: Nurse called yesterday and said son wanted to talk to someone about a feeding tube. Vital Signs: Vital Signs Date Time Temp Pulse Resp B/P (MAP) Pulse Ox O2 Delivery O2 Flow Rate FiO2 03/04/19 08:03 98 Nasal Cannula 2.0 03/04/19 07:00 97.4 102 16 98/57 (71) 97.4 Labs: Laboratory Tests Test 03/03/19 11:35 03/03/19 16:51 03/03/19 21:06 03/04/19 07:53 Glucose (Fingerstick) 145 mg/dL (70-99) 179 mg/dL (70-99) 89 mg/dL (70-99) 127 mg/dL (70-99) BLOOD CULTURE Final NO GROWTH AFTER 5 DAYS PE: GEN: NAD - up in chair LUNGS: NC 2L, clear anteriorly HEART: mildly tachycardic ABD: S/ND/NT NEURO/PSYCH: A & O 3, [place] A/P: Esophageal dysmotility (presbyesophagus/corkscrew), large hiatal hernia UTI -- Try IV Reglan. Continue PPI. PEG probably not an option w/ large hiatal hernia - d/w nurse yesterday, would be happy to talk to son. JORDANA CHEATHAM Mar 04, 2019 09:52
[2019-03-04] MEDS: POTASSIUM CHLORIDE 20 MEQ TABLET.ER. PO SCH (10:28)
[2019-03-04] MEDS: APIXABAN 5 MG TABLET. PO SCH (10:28)
[2019-03-04] MEDS: PANTOPRAZOLE 40 MG TABLET.DR. PO SCH (10:29)
[2019-03-04] MEDS: ASPIRIN ENTERIC COATED 81 MG TABLET.DR. PO SCH (10:29)
[2019-03-04] MEDS: LACTOBACILLUS RHAMNOSUS GG 1 CAPSULE. PO SCH (10:29)
[2019-03-04] MEDS: FLUTICASONE 50MCG/NASAL SPRAY 16GM BOTTLE. NS SCH (10:30)
[2019-03-04] MEDS: FUROSEMIDE 40 MG TABLET. PO SCH (10:30)
[2019-03-04] MEDS: METOPROLOL TART IMMED RELEASE 25 MG TABLET. PO SCH (10:30)
[2019-03-04] MEDS: METOCLOPRAMIDE HCL 10 MG/2 ML VIAL. IVP SCH ×2 (10:31→16:30)
[2019-03-04] MEDS ORDERED: LEVO250T7 PO (10:36)
[2019-03-04] MEDS ORDERED: METO5TAB55 PO (10:36)
--- NOTE | 2019-03-04 10:39 | SNU/HH DC ---
DISCHARGE WITH HOME HEALTH DISCHARGE INFORMATION: Discharge Date: Mar 04, 2019 Final Diagnosis: Problems Medical Problems: (1) Afib Status: Acute (2) UTI (urinary tract infection) Status: Acute Condition on Discharge: Stable CODE STATUS: Code Status: Full HOME HEALTH: Face to Face: I certify this patient is under my care and that I, or a nurse practitioner or physician's assistant teacher primary working with me, had a face to face encounter that meets the physician face to face encounter requirements with this patient on 03/04/19 Medical Complications: CHF, Other Senior Care For: Admin/Educate Injections, Assess & Educate Safety RN For Eval/Treatment: No Physical Therapy For: Evalulation/Treatment Occupational Therapy For: Evaluation/Treatment Pt Meets Homebound Status: Poor coordination w/ amb. POST DISCHARGE ORDERS: Activity Instructions for Disc: Activity as tolerated DIET AFTER DISCHARGE: Cardiac CHECKS AFTER DISCHARGE: Checks after discharge: Check blood press - daily, Check blood sugar, ac/hs, Weigh Yourself Daily TREATMENT/EQUIPMENT ORDERS: Discharge Respiratory Equipmen: Oxygen CERTIFICATION STATEMENT: Certification Statement: Certification Statement: Based on the above finding, I certify that this patient is confined to the home and needs intermittent senior care care, physical therapy and/or speech therapy, or continues to need occupational therapy.~ This patient is under my care, and I have initiated the establishment of the plan of care.~ This patient will be followed by myself or a community physician who will periodically review the plan of care. Home Meds Active Scripts Levofloxacin (LEVOFLOXACIN) 250 Mg Tablet, 250 MG PO DAILY for UTI for 5 Days, #5 TAB Prov:RISHABH MODI MD 03/04/19 Metoclopramide Hcl (REGLAN) 5 Mg Tablet, 1 TAB PO TID for GASTROPARESIS for 30 Days, #90 TAB 0 Refills 1 hour prior to procedure Prov:RISHABH MODI MD 03/04/19 Potassium Chloride (KLOR-CON 10) 10 Meq Tablet.er, 2 TAB PO DAILY for pot for 30 Days, #60 TAB 0 Refills Prov:MEG PALOMO MD 02/15/19 Furosemide (FUROSEMIDE) 40 Mg Tablet, 40 MG PO DAILY for chf for 30 Days, #30 TAB Prov:MEG PALOMO MD 02/15/19 Metoprolol Tartrate (METOPROLOL TARTRATE) 25 Mg Tablet, 25 MG PO BID for afib for 30 Days, #60 TAB Prov:MEG PALOMO MD 02/15/19 Diltiazem Hcl (DILTIAZEM 24HR CD) 180 Mg Cap.er.24h, 180 MG PO DAILY for a fib for 30 Days, #30 CAP.SR Prov:MEG PALOMO MD 02/15/19 Reported Medications Omeprazole Magnesium (PRILOSEC OTC) 20 Mg Tablet.dr, 20 MG PO DAILY for gerd, TAB 02/08/19 Albuterol Sulfate (VENTOLIN HFA INHALER) 18 Gm Hfa.aer.ad, 2 PUFF INH Q4HRS for FOR ASTHMA, INHALER 0 Refills 02/08/19 Fluticasone Propionate (Flonase Allergy Relief) 9.9 Ml [place].susp, 2 SPRAYS NS DAILY for allergies, BOTTLE 02/08/19 Aspirin (ASPIR-LOW) 81 Mg Tablet.dr, 1 TAB PO DAILY for cva, #30 TAB 3 Refills 02/08/19 Tramadol Hcl (TRAMADOL HCL) 50 Mg Tablet, 50 MG PO Q6HRS PRN for PAIN, TAB 02/08/19 Insulin Aspart (NOVOLOG) 100 Unit/1 Ml Vial, 10 UNIT SQ TIDAC for dm, VIAL 02/08/19 Insulin Degludec (Tresiba) 100 Unit/1 Ml Vial, 10 UNIT SQ HS for dm, EACH 02/08/19 Atorvastatin Calcium (LIPITOR) 10 Mg Tablet, 10 MG PO HS for FOR CHOLESTEROL, #30 TAB 0 Refills 02/08/19 Ergocalciferol (Vitamin D2) (VITAMIN D2) 50,000 Unit Capsule, 35128 UNIT PO WEEKLY, CAP 09/01/17 Apixaban (ELIQUIS) 5 Mg Tablet, 5 MG PO BID, TAB 09/01/17 RISHABH MODI MD Mar 04, 2019 10:39
--- NOTE | 2019-03-04 10:41 | SNU/HH DC ---
DISCHARGE ORDERS DISCHARGE INFORMATION: DISCHARGE DATE: Mar 04, 2019 FINAL DIAGNOSIS Problems Medical Problems: (1) Afib Status: Acute (2) UTI (urinary tract infection) Status: Acute CONDITION ON DISCHARGE: Stable CODE STATUS: Code Status: Full HOSPICE: HOSPICE: Yes HOSPICE EVAL & TREAT: Yes POST DISCHARGE ORDERS: ACTIVITY ORDERS: Activity as tolerated DIET AFTER DISCHARGE: Cardiac CHECKS AFTER DISCHARGE: CHECKS AFTER DISCHARGE: Check blood press - daily, Check blood sugar, ac/hs, Weigh Yourself Daily TREATMENT/EQUIPMENT ORDERS: RESPIRATORY EQUIPMENT NEEDED: Oxygen Physical Therapy For: Evalulation/Treatment Occupational Therapy For: Evaluation/Treatment DISCHARGE MEDICATIONS: Home Meds Active Scripts Levofloxacin (LEVOFLOXACIN) 250 Mg Tablet, 250 MG PO DAILY for UTI for 5 Days, #5 TAB Prov:RISHABH MODI MD 03/04/19 Metoclopramide Hcl (REGLAN) 5 Mg Tablet, 1 TAB PO TID for GASTROPARESIS for 30 Days, #90 TAB 0 Refills 1 hour prior to procedure Prov:RISHABH MODI MD 03/04/19 Potassium Chloride (KLOR-CON 10) 10 Meq Tablet.er, 2 TAB PO DAILY for pot for 30 Days, #60 TAB 0 Refills Prov:MEG PALOMO MD 02/15/19 Furosemide (FUROSEMIDE) 40 Mg Tablet, 40 MG PO DAILY for chf for 30 Days, #30 TAB Prov:MEG PALOMO MD 02/15/19 Metoprolol Tartrate (METOPROLOL TARTRATE) 25 Mg Tablet, 25 MG PO BID for afib for 30 Days, #60 TAB Prov:MEG PALOMO MD 02/15/19 Diltiazem Hcl (DILTIAZEM 24HR CD) 180 Mg Cap.er.24h, 180 MG PO DAILY for a fib for 30 Days, #30 CAP.SR Prov:MEG PALOMO MD 02/15/19 Reported Medications Omeprazole Magnesium (PRILOSEC OTC) 20 Mg Tablet.dr, 20 MG PO DAILY for gerd, TAB 02/08/19 Albuterol Sulfate (VENTOLIN HFA INHALER) 18 Gm Hfa.aer.ad, 2 PUFF INH Q4HRS for FOR ASTHMA, INHALER 0 Refills 02/08/19 Fluticasone Propionate (Flonase Allergy Relief) 9.9 Ml [place].susp, 2 SPRAYS NS DAILY for allergies, BOTTLE 02/08/19 Aspirin (ASPIR-LOW) 81 Mg Tablet.dr, 1 TAB PO DAILY for cva, #30 TAB 3 Refills 02/08/19 Tramadol Hcl (TRAMADOL HCL) 50 Mg Tablet, 50 MG PO Q6HRS PRN for PAIN, TAB 02/08/19 Insulin Aspart (NOVOLOG) 100 Unit/1 Ml Vial, 10 UNIT SQ TIDAC for dm, VIAL 02/08/19 Insulin Degludec (Tresiba) 100 Unit/1 Ml Vial, 10 UNIT SQ HS for dm, EACH 02/08/19 Atorvastatin Calcium (LIPITOR) 10 Mg Tablet, 10 MG PO HS for FOR CHOLESTEROL, #30 TAB 0 Refills 02/08/19 Ergocalciferol (Vitamin D2) (VITAMIN D2) 50,000 Unit Capsule, 07344 UNIT PO WEEKLY, CAP 09/01/17 Apixaban (ELIQUIS) 5 Mg Tablet, 5 MG PO BID, TAB 09/01/17 RISHABH MODI MD Mar 04, 2019 10:41
[2019-03-04] MEDS ORDERED: APIX2.5T PO (10:55)
[2019-03-04] MEDS ORDERED: DIGO125T3 PO (10:55)
[2019-03-04 11:00] VITALS: BP 105/59
--- NOTE | 2019-03-04 11:41 | DS ---
DATE OF DISCHARGE: HOSPITAL COURSE: The patient is an 83-year-old female patient who was admitted initially with increasing shortness of breath and atrial fibrillation with rapid ventricular response. She was seen in consultation by the refrigeration system installer and her heart rate was much better controlled; however, she also started having complaining of difficulty swallowing. She was seen in consultation by the banquet set up person and she has had upper GI endoscopy, which showed that she has severe esophageal dysmotility and large hiatal hernia and I have spoken with her son and explained to him that it is going to be technically difficult and also hazardous for his mother to have a endoscopic gastrotomy tube placement or surgically given her age and her multiple comorbidities and that best option for her to go home with hospice and she can have a pleasure feed to which she agrees and a decision was made to discharge her home with hospice. PHYSICAL EXAMINATION: GENERAL: When I saw her this afternoon, she looked well and was clearly in no apparent respiratory distress, pale, but no jaundice, cyanosis or thyromegaly. No jugular venous distention. No limb edema. VITAL SIGNS: Her heart rate was 102, blood pressure 98/57, temperature 97.4, respiratory rate was 16 and oxygen saturation was 98% on 2 liters of oxygen. Rest of the exam is stable. LABORATORY DATA: As of yesterday, her hemoglobin 12, hematocrit 37 with normal white cell count and platelets. Her chemistry showed that her BUN was 20, creatinine 1. DISCHARGE MEDICATIONS: She will be discharged home with hospice to continue on Levaquin 250 mg once a day for 5 more days, metoclopramide 5 mg 3 times a day before meals as recommended by the banquet set up person. Continue with albuterol sulfate 2 puffs every 4 hours, apixaban 5 mg twice a day, aspirin 81 mg once a day, atorvastatin calcium 10 mg at bedtime, diltiazem 180 mg once a day, vitamin D2 50,000 International Units weekly, Flonase 2 sprays to each nostril once a day, furosemide 40 mg once a day, insulin NovoLog 10 units before meals and Tresiba 10 units at bedtime, metoprolol 25 mg t.i.d., omeprazole, magnesium, Prilosec 20 mg once a day, potassium chloride 20 mEq once a day and tramadol 50 mg every 6 hours. Given her poor appetite, I recommended to cut down on her NovoLog insulin. FINAL DISCHARGE DIAGNOSES: 1. Dysphagia due to esophageal dysmotility and prolonged transit time and a large hiatal hernia and severe esophageal reflux disease, placement of gastrostomy tube is prohibitively dangerous. 2. Atrial fibrillation with rapid ventricular response, better controlled on oral Cardizem. 3. Acute on chronic diastolic congestive heart failure, seems to be well compensated. 4. Sick sinus syndrome, status post permanent pacemaker placement. 5. Type 2 diabetes mellitus, seems to be reasonably controlled. 6. Chronic obstructive pulmonary disease, clinically quiescent. 7. Urinary tract infection for which she is on oral Levaquin. RISHABH MODI MD DR: JB/kallie JOB#: [id number] / [id number]
--- NOTE | 2019-03-04 12:57 | NUR ---
SS following up with discharge planning. Discharge orders for hospice received. SS phoned and faxed discharge orders to [facility], ; fax [phone]. Pt will discharge today and return to home with family and [facility] at 1600 via [facility] ambulance. Pt, pt's RN, and pt's family notified.
--- NOTE | 2019-03-04 15:41 | PDOC ---
CARDIO Progress Notes Date and Time Date of Service 03/04/2019 Time of Evaluation 1240 Subjective Subjective: No Chest Pain, No shortness of breath, No Palpitations Vitals Vitals Vital Signs Date Time Temp Pulse Resp B/P (MAP) Pulse Ox O2 Delivery O2 Flow Rate FiO2 03/04/19 11:49 98 Nasal Cannula 2.0 03/04/19 11:00 97.9 107 16 105/59 (74) 97.9 Weight Weight [ ] Input and Output Intake and Output Intake and Output 03/04/19 06:59 Intake Total 560 ml Balance 560 ml Intake Oral 560 ml # Voids 5 # Bowel Movements 3 Laboratory Labs Laboratory Tests Test 03/03/19 16:51 03/03/19 21:06 03/04/19 07:53 03/04/19 12:00 Glucose (Fingerstick) 179 mg/dL (70-99) 89 mg/dL (70-99) 127 mg/dL (70-99) 168 mg/dL (70-99) Microbiology Micro Microbiology 02/26/19 Urine Culture - Final, Complete 02/26/19 Urine Culture Result 1 (CHANTELLE) - Final, Complete 02/26/19 Urine Culture Result 2 (CHANTELLE) - Final, Complete 02/26/19 Antimicrobic Susceptibility - Final, Complete 02/26/19 Blood Culture - Final, Complete NO GROWTH AFTER 5 DAYS Physical Exam HEENT: Neck Supple W Full Motion, Other ([place]) Chest: Symmetric LUNGS: Other (diminished) Heart: irregularly irregular (AFIB RVR) Abdomen: Other (soft) Extremities: Other (1+ bilateral LE pitting edema) Neurology: alert, oriented, follow commands Assessment Assessment 1. AFIB RVR: rate controlled 2. Mild acute on chronic systolic heart failure. EF 40-45% with [id number] pericardial effusion (02/11). appears compensated 3. UTI: Continue antibiotics per IM 4. SSS s/p PPM clinically stable 5. Diabetes mellitus type 2: Treat per IM 6. Mild AECOPD with possible aspiration 7. S/P EGD; noted with hiatal hernia and esophageal dysmotility 8. Debility/frailty Recommendations 1. Metoprolol and digoxin.Lasix therapy. 2. Eliquis for stroke prevention at 2.5 mg bid..No significant indication for ASA currently will DC to decrease risk for bleed. 3. Pt has been transition to hospice. will sign off. ONEIDA SWANSON PHYSICS PROFESSOR Mar 04, 2019 15:41
--- NOTE | 2019-03-04 17:51 | NUR ---
Discharge: Teaching verbal and written. Copy of discharge instructions, medications and follow up set in packet. 6 written prescriptions in packet. IV removed without complications, catheter tip in tact. Patient assisted off of unit via wheelchair accompanied by EMS, all belongings with patient. Spoke with Perry regarding discharge and when patient left the unit.
== END 2019-03-04 17:50 | disposition hospice, home (50) | DRG 291 ==
LOC: ER 17:40 → 2 SOUTH 22:04
PROVIDERS: ADMIT Internal Medicine; ATTEND Internal Medicine
PROC: 0DJ08ZZ Inspection of Upper Intestinal Tract, Via Natural or Artificial Opening Endoscopic (ICD-10-PCS; principal; 2019-03-02 10:00)
DX: I11.0 Hypertensive heart disease with heart failure (principal); E43 Unspecified severe protein-calorie malnutrition; R64 Cachexia; I48.21 Permanent atrial fibrillation; N39.0 Urinary tract infection, site not specified; J44.1 Chronic obstructive pulmonary disease with (acute) exacerbation; I31.3 Pericardial effusion (noninflammatory); K22.4 Dyskinesia of esophagus; I50.43 Acute on chronic combined systolic (congestive) and diastolic (congestive) heart failure; K44.9 Diaphragmatic hernia without obstruction or gangrene; K21.9 Gastro-esophageal reflux disease without esophagitis; R13.14 Dysphagia, pharyngoesophageal phase; F41.9 Anxiety disorder, unspecified; M19.90 Unspecified osteoarthritis, unspecified site; E86.0 Dehydration; E78.5 Hyperlipidemia, unspecified; M81.0 Age-related osteoporosis without current pathological fracture; E11.9 Type 2 diabetes mellitus without complications; I25.10 Atherosclerotic heart disease of native coronary artery without angina pectoris; K22.8 Other specified diseases of esophagus; K57.90 Diverticulosis of intestine, part unspecified, without perforation or abscess without bleeding; H90.5 Unspecified sensorineural hearing loss; I49.5 Sick sinus syndrome; F03.90 Unspecified dementia, unspecified severity, without behavioral disturbance, psychotic disturbance, mood disturbance, and anxiety; K80.20 Calculus of gallbladder without cholecystitis without obstruction; Z95.0 Presence of cardiac pacemaker; Z87.891 Personal history of nicotine dependence; Z74.01 Bed confinement status; Z87.440 Personal history of urinary (tract) infections; Z79.4 Long term (current) use of insulin; Z79.01 Long term (current) use of anticoagulants; Z68.22 Body mass index [BMI] 22.0-22.9, adult; Z88.0 Allergy status to penicillin; Z88.8 Allergy status to other drugs, medicaments and biological substances; Z83.3 Family history of diabetes mellitus
CPT/HCPCS: 36415; 43235; 71045; 74220; 80048; 80053; 81001; 82962; 83605; 83735; 83880; 84484; 85025; 85027; 85610; 85730; 87040; 87086; 87186; 93005; 94640; 94760; 96365; 96376; J1160; J1815; J1956; J2001; J2704; J2765; J3490; J7120; J7613; J7620; J8597; P9612; 92610; 97116; 97530; 99285-25; G0378